=== PATIENT | female | born 1955 | race Caucasian/White ===

== ENCOUNTER 2016-09-01 17:04 | Observation (INO) | payer MEDICARE ==
[~2016-09-01] VITALS: Ht 167.6 cm; Wt 152.1 kg
[~2016-09-01 17:04] MED LIST: ADVAIR DISKU1 IN; ALBUTEROL2.5 MG/3 M IN; CALCITRIOL0.25 MCG PO; CENTRUM SILVE1 PO; COMBIVENT RESPIMAT; COQ-10100 MG PO; FISH OIL1200 MG PO; FLUOXETINE HCL20 MG PO; LISINOPRIL10 MG PO; LOPRESSOR25 MG PO; METOPROLOL SUCC50 MG PO; MYCOSTATIN15 GM TOP; NYSTATIN100000 MG PO; OMEPRAZOLE20 M1 PO; PREDNISONE20 MG PO; RISPERDAL1 MG PO; SPIRIVA18 MCG INH; SYMBICORT1 AE1; TYLENOL325 MG PO
--- NOTE | 2016-09-01 19:07 | DIAGNOSTIC IMAGING REPORT ---
PROCEDURE: US VENOUS - BILATERAL EXT INDICATION: SWELLING TECHNIQUE: Duplex sonography of the deep venous system in both lower extremities was performed. Compression and augmentation techniques were used. COMPARISON: None. FINDINGS: Each interrogated segment of deep vein from the common femoral vein into the calf veins demonstrates normal compressibility, augmentation and/or color Doppler flow without filling defect. Significant subcutaneous edema in both calves. No focal fluid collections or soft tissue mass. IMPRESSION: 1. No deep venous thrombosis in either lower extremity. 2. Bilateral calf edema.
--- NOTE | 2016-09-01 19:09 | ED CLINICAL REPORT ---
Clinical Report - Physicians/Mid Levels [facility] [address] [place] [address] 09/01/2016 17:05 Patient: GREGG KEARNEY Time Seen: 17:47. Arrived- By private vehicle. Historian- patient. Note: (sent in from clinic (YOANA Abraham)). HISTORY OF PRESENT ILLNESS Chief Complaint: TENDER AREA. This started about 2 weeks ago and is still present. It was gradual in onset and has been waxing/waning. It is described as painful. It has been located on the right lower extremity and left lower extremity. No cause has been identified. (Pt reports she was diagnosed with cellulitis 2 weeks ago and has been on antibiotics, but is getting worse). Similar symptoms previously: Recent medical care: The patient was seen recently in a clinic. REVIEW OF SYSTEMS No fever, cough, difficulty breathing, headache or chest pain. No abdominal pain, diarrhea, difficulty with urination, genital lesions or vomiting. She has had nausea. All systems otherwise negative, except as recorded above. PAST HISTORY See nurses notes. PCP: Vickey PROBLEMS: Leukocytosis. Iv Drug Use. Osteoporosis. Arthritis. Hypertension. Hepatitis C. COPD - Chronic Obstructive Pulmonary Disease. Anxiety. Depression. SURGERIES: Appendectomy. Hysterectomy. Medications: Dicloxacillin Sodium Oral. Omeprazole Oral. RisperiDONE Oral. Spiriva HandiHaler Inhalation. Symbicort Inhalation. Furosemide Oral. Calcium Citrate Oral. Centrum Silver Oral. FLUoxetine HCl Oral. Lisinopril Oral. Metoprolol Succinate ER Oral. Allergies: Thorazine. Definite(Anaphylaxis). SOCIAL HISTORY Former smoker. History of drug use: marijuana. No alcohol use. ADDITIONAL NOTES The nursing notes have been reviewed. PHYSICAL EXAM Vital Signs: 09/01/2016 17:42 BP: 151/89. HR: 87. RR: 24. O2 saturation: 93%. Temp: 98.2 F. Pain level now: 8/10. Appearance: Alert. Oriented X3. Patient in moderate distress. ENT: Pharynx normal. Neck: Neck supple. CVS: Normal heart rate and rhythm. Heart sounds normal. Respiratory: No respiratory distress. Breath sounds normal. Abdomen: Nontender. No organomegaly. Obese. Skin: Cellulitis to right leg and left leg. Extremities: Moderate right-sided and left-sided calf tenderness. Bilateral severe pitting edema of the lower extremities. Right leg: moderate erythema, tenderness and swelling located in the anterior, posterior, medial and lateral aspect of upper, mid and lower leg. Neurovascular intact distally. Left leg: moderate erythema, tenderness and swelling. Neuro: Oriented X 3. No motor deficit. No sensory deficit. LABS, X-RAYS, AND EKG Lower Extremity Sonography: No evidence of DVT bilaterally. Indication for study: extremity pain, swelling and redness; suspected deep venous thrombosis in the right and left lower extremity. The exam was performed by a tool maintenance technician. The study was interpreted by the radiologist. Laboratory Tests: CBC w Diff: (PAUL: 09/01/2016 18:10) ( MsgRcvd 09/01/2016 18:27) Final results Test Result Flag Units (Reference) WHITE BLOOD COUNT 10.0 K/uL (4.5-11.5) RED BLOOD COUNT 3.77 L M/uL (4.00-5.20) HEMOGLOBIN 11.9 L gm/dL (12.0-16.0) HEMATOCRIT 35.5 L % (36.0-46.0) MEAN CELL VOLUME 94 fL (80-100) MEAN CORPUSCULAR HGB 32 pg (26-34) MEAN CORPUSCULAR HGB CONC 34 g/dL (31-37) RED CELL DISTRIBUTION WIDTH 14.7 % (11.6-14.8) PLATELET COUNT 323 K/uL (150-400) NEUTROPHIL % 78.8 H % (50-75) LYMPH % 9.2 L % (25-40) MONO % 7.4 % (3-14) EOSINOPHIL % 1.6 % (0-4) BASOPHIL % 3.0 H % (0-2) BNP: (PAUL: 09/01/2016 18:10) ( MsgRcvd 09/01/2016 18:52) Final results Test Result Flag Units (Reference) B-TYPE NATRIURETIC PEPTIDE 16.1 pg/ml (5-100) Lactate, Serum: (PAUL: 09/01/2016 18:10) ( MsgRcvd 09/01/2016 18:58) Final results Test Result Flag Units (Reference) LACTIC ACID 1.6 mmol/L (0.4-2.0) [id number]: (PAUL: 09/01/2016 18:10) ( MsgRcvd 09/01/2016 18:58) Final results Test Result Flag Units (Reference) PROCALCITONIN <0.5 ng/mL (0-0.5) PCT Concentration: Interpretation : Risk/option for action PCT <=0.5 ng/mL : Systemic : Low risk forinfection(sepsis): progression to severeis not likely. : systemic infection.Local bacterial : CAUTION-PCT levelsinfection is : below 0.5 ng/mL do notpossible. : exclude an infection,because localizedinfections (withoutsystemic signs) may beassociated with suchlow levels. If PCT ismeasured very earlyafter a bacterialchallenge (usually <6hours), these valuesmay still be low. Inthis case PCT shouldbe re-assessed 6-24hours later. PCT >0.5 and : Systemic infection: Moderate risk for<= 2 ng/mL : (sepsis) is : progression to severepossible, but : systemic infection.other conditions : The patient should beare known to : closely monitoredelevate PCT. : both clinically andby re-assessing PCTwithin 6-24 hours. PCT > 2 ng/mL : Systemic infection: High risk for(sepsis) is likely: progression to severeunless other : systemic infection.causes are known. : PCT >= 10 ng/mL : Important systemic: High likelihood ofinflammatory : severe sepsis orresponse, almost : septic shock.exclusively due to:severe bacterial :sepsis or septic :shock. : CMP: (PAUL: 09/01/2016 18:10) ( MsgRcvd 09/01/2016 18:38) Final results Test Result Flag Units (Reference) GLUCOSE 123 H mg/dL (70-110) BUN 15 mg/dL (7-18) CREATININE 1.4 H mg/dL (0.6-1.3) Estimated GFR 40.37 mL/min Estimated GFR- 48.92 mL/min Note: Persistent reduction over 3 months in eGFR<60 mL/min/1.73 m2 defines CKD. Patients with eGFR values>=60 mL/min/1.73 m2 may also have CKD if evidence ofpersistent proteinuria. Additional information may be foundat www.kidney.org. SODIUM 139 mmol/L (136-145) POTASSIUM 4.4 mmol/L (3.5-5.1) CHLORIDE 100 mmol/L (98-107) CARBON DIOXIDE 28 mmol/L (21-32) CALCIUM 8.8 mg/dL (8.5-10.1) TOTAL PROTEIN 6.6 g/dL (6.4-8.2) ALBUMIN 3.6 g/dL (3.3-5.0) BILIRUBIN, TOTAL 0.2 mg/dL (0.0-1.0) ALKALINE PHOSPHATASE 96 U/L (46-116) AST (SGOT) 13 L U/L (15-37) ALT (SGPT) 20 U/L (12-78) . Pulse Oximetry: 09/01/2016 17:42 O2 saturation: 93%. (FIO2 - room air). Interpretation: hypoxemia. PROGRESS AND PROCEDURES Course of Care: Normal Saline 1 liter IVPB given. Vancomycin 1 gram IVPB given. Zofran 4 mg IVP given. Dilaudid 0.5 mg IVP given. 19:39 09/01/16. Patient is stable. Physical exam findings are improved. Symptoms better. Discussed case with hospitalist, (Lyle call placed 19:17 call returned 19:32). Reviewed test results. Agreed upon treatment plan and decision to admit. Patient/family counseled. Old ED records reviewed. Transition orders written. Disposition: Admitted to Acute Care. Condition: stable and improved. CLINICAL IMPRESSION Cellulitis of the right lower leg and left lower leg. (Electronically signed by Sam Leroy DO 09/01/2016 22:16)
--- NOTE | 2016-09-01 19:09 | ED ORDER SUMMARY ---
..... Patient: GREGG KEARNEY OrderSheet VisitID: [id number] [address] [place] [address] 61y, F Registration Date/Time: 09/01/2016 ORDER SHEET Weight: 147.4 kg (stated) Allergies: Thorazine GENERAL ORDERS: CBC w Diff Urgent (17:48 09/01/2016 PHutchinson DO) (18:11 MWinterer R.N.) CMP Urgent (17:48 09/01/2016 PHutchinson DO) (18:11 MWinterer R.N.) UA-Culture if indicated Urgent (17:48 09/01/2016 PHutchinson DO) (Ack 18:20 RKkaterina) (Cancelled: Unable to Fwkzojs47:39 MWinterer R.N.) PCT (Procalcitonin) Urgent (17:48 09/01/2016 PHutchinson DO) (18:11 MWinterer R.N.) Lactate, Serum Urgent (17:48 09/01/2016 PHutchinson DO) (18:11 MWinterer R.N.) US Venous Bilat Urgent (18:01 09/01/2016 PHutchinson DO) (Ack 18:11 MWinterer R.N.) (18:45 MWinterer R.N.) BNP Urgent (18:02 09/01/2016 PHutchinson DO) (18:11 MWinterer R.N.) Call (Place call to): (Dr Alvarenga) (19:17 09/01/2016 PHutchinson DO) (19:32 [facility] Tech1) MEDICATION ORDERS: IV FLUIDS: IV NS : initial bolus 1000 mL (1000 mL/hr), then 250 mL/hr for X4 (NOW) (17:48 09/01/2016 PHutchinson DO) (Ack 17:50 MWinterer R.N.) (18:11 MWinterer R.N.) Vancomycin IV 2 gm/500 mL (NOW) (17:51 09/01/2016 PHutchinson DO) (Ack 18:11 MWinterer R.N.) (18:47 MWinterer R.N.) Dilaudid IV 0.5 mg (HIGH ALERT MEDICATION, NOW) (18:41 09/01/2016 [facility]) (Ack 18:45 MWinterer R.N.) (18:54 MWinterer R.N.) Zofran IV 4 mg (NOW) (18:41 09/01/2016 [facility]) (Ack 18:45 MWinterer R.N.) (18:54 MWinterer R.N.) ORDER SHEET NOTES: [Electronically signed by Sam Leroy DO (22:16 09/01/2016)] [Electronically signed by Shanthi Ibarra R.N. (23:40 09/01/2016)] [Electronically locked/signed by Shanthi Ibarra R.N. (23:40 09/01/2016)]
--- NOTE | 2016-09-01 19:09 | ED NURSING NOTES ---
Clinical Report - Nurses [facility] [place] [address] [address] 09/01/2016 17:05 Patient: GREGG KEARNEY TRIAGE Acuity: LEVEL 3. Chief Complaint: SKIN RASH. Alert. No acute distress. SEPSIS SCREEN: Sepsis Screen. Negative (no infection suspected/documented). --17:49 Shanthi Ibarra R.N. 17:42 09/01/16. BP: 151/89. HR: 87. RR: 24. O2 saturation: 93% on room air. Temp: 98.2 F (oral). Pain level now: 01/25. --17:49 Shanthi Ibarra R.N. Weight: 147.4 kg stated. Height/Length: 66 inches Per Patient. BMI: 52.5. --17:46 Shanthi Ibarra R.N. Medications Calcium Citrate Oral. Centrum Silver Oral. FLUoxetine HCl Oral. Lisinopril Oral. Metoprolol Succinate ER Oral. --17:47 Shanthi Ibarra R.N. Furosemide Oral. --17:47 Shanthi Ibarra R.N. Omeprazole Oral. RisperiDONE Oral. Spiriva HandiHaler Inhalation. Symbicort Inhalation. --17:47 Shanthi Ibarra R.N. Dicloxacillin Sodium Oral. --17:48 Shanthi Ibarra R.N. Allergies Thorazine. Definite(Anaphylaxis) --17:48 Shanthi Ibarra R.N. History Arrived by private vehicle. Historian: patient. Accompanied by daughter and son. Primary physician (Zaida). Reported as located on the right leg, right ankle, left leg and left ankle. Onset. (2 weeks ago). ( Pt reports she was diagnosed with cellulitis 2 weeks ago and has been on antibiotics, but is getting worse.). Treatment ENRICHMENT DIRECTOR: Seen within the last 30 days in the office; seen for similar symptoms; treatment- antibiotic. PAST MEDICAL HX: The patient has had a hysterectomy. SOCIAL HX: Smoker- current status unknown. History of occasional drug use: marijuana. No alcohol use. NUTRITIONAL RISK ASSESSMENT: The nutritional risk assessment revealed no deficiencies. FUNCTIONAL ASSESSMENT: Functional assessment: no impairments noted. LEARNING NEEDS ASSESSMENT: The learning needs assessment revealed no barriers. FALL RISK ASSESSMENT: Fall risk assessment completed. Risk factors identified include severe pain and patient impairment of mobility. SKIN INTEGRITY ASSESSMENT: Skin integrity risk assessment completed. No skin integrity risk identified. --17:49 Shanthi Ibarra R.N. PROBLEMS: Leukocytosis. Iv Drug Use. Osteoporosis. Arthritis. Hypertension. Hepatitis C. COPD - Chronic Obstructive Pulmonary Disease. Anxiety. Depression. --17:48 Shanthi Ibarra R.N. ADDITIONAL SURGERIES: Appendectomy. Hysterectomy. --17:48 Shanthi Ibarra R.N. Assessment GENERAL / NEURO / PSYCH: Alert. Oriented X 4. Appears in no acute distress. Alejandro Coma Scale: 15- eyes open spontaneously (4); best verbal response- oriented x 4 (5); best motor response- obeys commands (6). Patient appears calm and cooperative. RESPIRATORY: Respirations not labored. CVS: Capillary refill less than 2 seconds. GI / : Abdomen soft. SKIN: Mucous membranes are pink. Skin is warm and dry. --17:49 Shanthi Ibarra R.N. Interventions ID band on patient. To treatment room. --17:49 Shanthi Ibarra R.N. PHYSICAL ASSESSMENT 17:50 09/01/16. Ambulatory to room. GENERAL / NEURO / PSYCH: Alert. The patient does not appear to be in acute distress. Oriented X 4. HEENT: Pupils equal, round and reactive to light. Mucous membranes are pink. RESPIRATORY: Respirations not labored. CVS: Capillary refill less than 2 seconds. GI / : Abdomen nontender. SKIN: Skin is warm and dry. Swelling on the right leg, right ankle, left leg and left ankle- associated with erythema, tenderness and increased warmth. --17:50 Shanthi Ibarra R.N. NURSING PROGRESS NOTES 17:50 09/01/16. Patient gowned. Reassurance given. Two patient identifiers checked. Call light placed in reach. Side rails up x 1. Bed placed in lowest position. Brakes of bed on. Patient ready for evaluation- chart flagged and ED physician and SHIP RUNNER notified. --17:50 Shanthi Ibarra R.N. 18:10 09/01/2016 Site #1 started via IV in the right wrist with an 22g angiocath, with aseptic technique and good blood return. Blood drawn: rainbow set. Labeled in the presence of the patient and sent to the lab. --18:10 Shanthi Ibarra R.N. 18:11 09/01/2016 Started bag #1 1000 mL IV Fluids IV NS (Saline); at 999 mL/hr over 1 hour(s) via site #1 via IV pump. Allergies verified and confirmed 5 rights. IV patency established. IV site checked: no pain, redness, or swelling. IV flushed thoroughly pre- and post-medication administration. --18:11 Shanthi Ibarra R.N. 18:17 09/01/16. wellfield technician at the patient's bedside. --18:17 Shanthi Ibarra R.N. 18:47 09/01/2016 Started 2 gm of Vancomycin IVPB in bag #1 500 mL; at 270 mL/hr over 2 hour(s) via site #1 via IV pump. Allergies verified and confirmed 5 rights. IV patency established. IV site checked: no pain, redness, or swelling. IV flushed thoroughly pre- and post-medication administration. --18:47 Shanthi Ibarra R.N. 18:54 09/01/2016 Dilaudid (HYDROmorphone HCl PF) IVP 0.5 mg given over 1 minute(s) via site #1. Sedative warning given to the patient. IV patency established. IV site checked: no pain, redness, or swelling. IV flushed thoroughly pre- and post-medication administration. IVP given by RN. --18:54 Shanthi Ibarra R.N. 18:54 09/01/2016 Zofran (Ondansetron HCl) IVP 4 mg given over 1 minute(s) via site #1. Allergies verified and confirmed 5 rights. IV patency established. IV site checked: no pain, redness, or swelling. IV flushed thoroughly pre- and post-medication administration. IVP given by RN. --18:54 Shanthi Ibarra R.N. 18:55 09/01/16. BP: 133/72. HR: 80. RR: 16. O2 saturation: 93% on nasal cannula at 2 liters/minute. --18:55 Shanthi Ibarra R.N. 20:13 09/01/16. BP: 136/75. HR: 80. RR: 16. O2 saturation: 94% on nasal cannula at 2 liters/minute. Temp: 98.6 F (oral). Pain level now: 10/25. --20:15 Shanthi Ibarra R.N. 20:59 09/01/2016 IV Fluids IV NS Discontinued: bag #1 infused. Total amount infused: 1000 mL. IV patency established. IV site checked: no pain, redness, or swelling. IV flushed thoroughly. --20:59 Shanthi Ibarra R.N. 20:59 09/01/2016 Vancomycin IVPB Discontinued: bag #1 infused. Total amount infused: 500 mL. IV patency established. IV site checked: no pain, redness, or swelling. IV flushed thoroughly. --20:59 Shanthi Ibarra R.N. DISPOSITION / DISCHARGE Departure time: 21:00 Sep 01 2016. Condition at departure: improved and stable. Admitted to Acute Care. Transported via stretcher by [employer]. Report was given. (ROSETTA Bush). Patient's personal items include: shirt, pants, undergarments, socks, shoes, glasses, upper denture and lower denture, purse and cell phone; items were placed in belongings bag and given to the patient. She did not have contacts or a hearing aid. --21:01 Shanthi Ibarra R.N. 20:59 09/01/16. BP: 116/53. HR: 88. RR: 20. O2 saturation: 93% on nasal cannula at 2 liters/minute. Temp: 98.4 F (oral). Pain level now: 10/25. --21:01 Shanthi Ibarra R.N. 21:02 09/01/2016 Site #[address] upon admission; patent, no pain and no signs of infection or infiltration. Converted to saline lock and flushed with 10 mL saline; flushes easily. --21:02 Shanthi Ibarra R.N. Locked/Released at 09/01/2016 23:40 by Shanthi Ibarra R.N.
--- NOTE | 2016-09-01 19:09 | ED ORDER SUMMARY ---
..... Patient: GREGG KEARNEY OrderSheet [facility] VisitID: [id number] [address] [place] [address] 61y, F Registration Date/Time: 09/01/2016 ORDER SHEET Weight: 147.4 kg (stated) Allergies: Thorazine GENERAL ORDERS: CBC w Diff Urgent (17:48 09/01/2016 PHutchinson DO) (18:11 MWinterer R.N.) CMP Urgent (17:48 09/01/2016 PHutchinson DO) (18:11 MWinterer R.N.) UA-Culture if indicated Urgent (17:48 09/01/2016 PHutchinson DO) (Ack 18:20 RKkaterina) (Cancelled: Unable to [id number]:39 MWinterer R.N.) PCT (Procalcitonin) Urgent (17:48 09/01/2016 PHutchinson DO) (18:11 MWinterer R.N.) Lactate, Serum Urgent (17:48 09/01/2016 PHutchinson DO) (18:11 MWinterer R.N.) US Venous Bilat Urgent (18:01 09/01/2016 PHutchinson DO) (Ack 18:11 MWinterer R.N.) (18:45 MWinterer R.N.) BNP Urgent (18:02 09/01/2016 PHutchinson DO) (18:11 MWinterer R.N.) Call (Place call to): (Dr Alvarenga) (19:17 09/01/2016 PHutchinson DO) (19:32 [facility] Tech1) MEDICATION ORDERS: IV FLUIDS: IV NS : initial bolus 1000 mL (1000 mL/hr), then 250 mL/hr for X4 (NOW) (17:48 09/01/2016 PHutchinson DO) (Ack 17:50 MWinterer R.N.) (18:11 MWinterer R.N.) Vancomycin IV 2 gm/500 mL (NOW) (17:51 09/01/2016 PHutchinson DO) (Ack 18:11 MWinterer R.N.) (18:47 MWinterer R.N.) Dilaudid IV 0.5 mg (HIGH ALERT MEDICATION, NOW) (18:41 09/01/2016 [facility]) (Ack 18:45 MWinterer R.N.) (18:54 MWinterer R.N.) Zofran IV 4 mg (NOW) (18:41 09/01/2016 [facility]) (Ack 18:45 MWinterer R.N.) (18:54 MWinterer R.N.) ORDER SHEET NOTES: [Electronically signed by Sam Leroy DO (22:16 09/01/2016)] [Electronically signed by hSanthi Ibarra R.N. (23:40 09/01/2016)] [Electronically locked/signed by Shanthi Ibarra R.N. (23:40 09/01/2016)]
--- NOTE | 2016-09-01 19:09 | ED NURSING NOTES ---
Clinical Report - Nurses Formerly [facility] [place] [address] 09/01/2016 17:05 Patient: GREGG KEARNEY TRIAGE Acuity: LEVEL 3. Chief Complaint: SKIN RASH. Alert. No acute distress. SEPSIS SCREEN: Sepsis Screen. Negative (no infection suspected/documented). --17:49 Shanthi Ibarra R.N. 17:42 09/01/16. BP: 151/89. HR: 87. RR: 24. O2 saturation: 93% on room air. Temp: 98.2 F (oral). Pain level now: 01/25. --17:49 Shanthi Ibarra R.N. Weight: 147.4 kg stated. Height/Length: 66 inches Per Patient. BMI: 52.5. --17:46 Shanthi Ibarra R.N. Medications Calcium Citrate Oral. Centrum Silver Oral. FLUoxetine HCl Oral. Lisinopril Oral. Metoprolol Succinate ER Oral. --17:47 Shanthi Ibarra R.N. Furosemide Oral. --17:47 Shanthi Ibarra R.N. Omeprazole Oral. RisperiDONE Oral. Spiriva HandiHaler Inhalation. Symbicort Inhalation. --17:47 Shanthi Ibarra R.N. Dicloxacillin Sodium Oral. --17:48 Shanthi Ibarra R.N. Allergies Thorazine. Definite(Anaphylaxis) --17:48 Shanthi Ibarra R.N. History Arrived by private vehicle. Historian: patient. Accompanied by daughter and son. Primary physician (Zaida). Reported as located on the right leg, right ankle, left leg and left ankle. Onset. (2 weeks ago). ( Pt reports she was diagnosed with cellulitis 2 weeks ago and has been on antibiotics, but is getting worse.). 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 PAST MEDICAL HX: The patient has had a hysterectomy. SOCIAL HX: Smoker- current status unknown. History of occasional drug use: marijuana. No alcohol use. NUTRITIONAL RISK ASSESSMENT: The nutritional risk assessment revealed no deficiencies. FUNCTIONAL ASSESSMENT: Functional assessment: no impairments noted. LEARNING NEEDS ASSESSMENT: The learning needs assessment revealed no barriers. FALL RISK ASSESSMENT: Fall risk assessment completed. Risk factors identified include severe pain and patient impairment of mobility. SKIN INTEGRITY ASSESSMENT: Skin integrity risk assessment completed. No skin integrity risk identified. --17:49 Shanthi Ibarra R.N. PROBLEMS: Leukocytosis. Iv Drug Use. Osteoporosis. Arthritis. Hypertension. Hepatitis C. COPD - Chronic Obstructive Pulmonary Disease. Anxiety. Depression. --17:48 Shanthi Ibarra R.N. ADDITIONAL SURGERIES: Appendectomy. Hysterectomy. --17:48 Shanthi Ibarra R.N. Assessment GENERAL / NEURO / PSYCH: Alert. Oriented X 4. Appears in no acute distress. Alejandro Coma Scale: 15- eyes open spontaneously (4); best verbal response- oriented x 4 (5); best motor response- obeys commands (6). Patient appears calm and cooperative. RESPIRATORY: Respirations not labored. CVS: Capillary refill less than 2 seconds. GI / : Abdomen soft. SKIN: Mucous membranes are pink. Skin is warm and dry. --17:49 Shanthi Ibarra R.N. Interventions ID band on patient. To treatment room. --17:49 Shanthi Ibarra R.N. PHYSICAL ASSESSMENT 17:50 09/01/16. Ambulatory to room. GENERAL / NEURO / PSYCH: Alert. The patient does not appear to be in acute distress. Oriented X 4. HEENT: Pupils equal, round and reactive to light. Mucous membranes are pink. RESPIRATORY: Respirations not labored. CVS: Capillary refill less than 2 seconds. GI / : Abdomen nontender. SKIN: Skin is warm and dry. Swelling on the right leg, right ankle, left leg and left ankle- associated with erythema, tenderness and increased warmth. --17:50 Shanthi Ibarra R.N. NURSING PROGRESS NOTES 17:50 09/01/16. Patient gowned. Reassurance given. Two patient identifiers checked. Call light placed in reach. Side rails up x 1. Bed placed in lowest position. Brakes of bed on. Patient ready for evaluation- chart flagged and ED physician and AUDIT MGR notified. --17:50 Shanthi Ibarra R.N. 18:10 09/01/2016 Site #1 started via IV in the right wrist with an 22g angiocath, with aseptic technique and good blood return. Blood drawn: rainbow set. Labeled in the presence of the patient and sent to the lab. --18:10 Shanthi Ibarra R.N. 18:11 09/01/2016 Started bag #1 1000 mL IV Fluids IV NS (Saline); at 999 mL/hr over 1 hour(s) via site #1 via IV pump. Allergies verified and confirmed 5 rights. IV patency established. IV site checked: no pain, redness, or swelling. IV flushed thoroughly pre- and post-medication administration. --18:11 Shanthi Ibarra R.N. 18:17 09/01/16. field evidence technician at the patient's bedside. --18:17 Shanthi Ibarra R.N. 18:47 09/01/2016 Started 2 gm of Vancomycin IVPB in bag #1 500 mL; at 270 mL/hr over 2 hour(s) via site #1 via IV pump. Allergies verified and confirmed 5 rights. IV patency established. IV site checked: no pain, redness, or swelling. IV flushed thoroughly pre- and post-medication administration. --18:47 Shanthi Ibarra R.N. 18:54 09/01/2016 Dilaudid (HYDROmorphone HCl PF) IVP 0.5 mg given over 1 minute(s) via site #1. Sedative warning given to the patient. IV patency established. IV site checked: no pain, redness, or swelling. IV flushed thoroughly pre- and post-medication administration. IVP given by RN. --18:54 Shanthi Ibarra R.N. 18:54 09/01/2016 Zofran (Ondansetron HCl) IVP 4 mg given over 1 minute(s) via site #1. Allergies verified and confirmed 5 rights. IV patency established. IV site checked: no pain, redness, or swelling. IV flushed thoroughly pre- and post-medication administration. IVP given by RN. --18:54 Shanthi Ibarra R.N. 18:55 09/01/16. BP: 133/72. HR: 80. RR: 16. O2 saturation: 93% on nasal cannula at 2 liters/minute. --18:55 Shanthi Ibarra R.N. 20:13 09/01/16. BP: 136/75. HR: 80. RR: 16. O2 saturation: 94% on nasal cannula at 2 liters/minute. Temp: 98.6 F (oral). Pain level now: 10/25. --20:15 Shanthi Ibarra R.N. 20:59 09/01/2016 IV Fluids IV NS Discontinued: bag #1 infused. Total amount infused: 1000 mL. IV patency established. IV site checked: no pain, redness, or swelling. IV flushed thoroughly. --20:59 Shanthi Ibarra R.N. 20:59 09/01/2016 Vancomycin IVPB Discontinued: bag #1 infused. Total amount infused: 500 mL. IV patency established. IV site checked: no pain, redness, or swelling. IV flushed thoroughly. --20:59 Shanthi Ibarra R.N. DISPOSITION / DISCHARGE Departure time: 21:00 Sep 01 2016. Condition at departure: improved and stable. Admitted to Acute Care. Transported via stretcher by [facility]. Report was given. (ROSETTA Bush). Patient's personal items include: shirt, pants, undergarments, socks, shoes, glasses, upper denture and lower denture, purse and cell phone; items were placed in belongings bag and given to the patient. She did not have contacts or a hearing aid. --21:01 Shanthi Ibarra R.N. 20:59 09/01/16. BP: 116/53. HR: 88. RR: 20. O2 saturation: 93% on nasal cannula at 2 liters/minute. Temp: 98.4 F (oral). Pain level now: 10/25. --21:01 Shanthi Ibarra R.N. 21:02 09/01/2016 Site #[address] upon admission; patent, no pain and no signs of infection or infiltration. Converted to saline lock and flushed with 10 mL saline; flushes easily. --21:02 Shanthi Ibarra R.N. Locked/Released at 09/01/2016 23:40 by Shanthi Ibarra R.N.
[2016-09-01 20:12] VITALS: BP 133/72
--- NOTE | 2016-09-01 20:34 | Progress Note ---
Subjective General Admission History and Physical Examination Patient Name: Massiel Larson Admission Date: September 01, 2016 Primary Care Provider: Rey Hurd M.D. Attending Physician: Te Alvarenga M.D. Admitting Physician: Te Alvarenga M.D. Code Status: Full Code Room: 208 SUBJECTIVE Historian: Patient Reliability: Fair Chief Complaint: Infected legs History of Present Illness: The patient is a 61-year-old morbidly obese white female with a significant past medical history of venous stasis dermatitis lower extremities, COPD, hypertension, osteoarthritis, depression, bipolar disorder, hepatitis C, who presented to [facility] emergency department on the day of admission secondary to complaints of bilateral lower extremity cellulitis unresponsive to outpatient oral antibiotic therapy. [facility] ER evaluation was consistent with bilateral lower leg cellulitis unresponsive to outpatient therapy. Secondary to the above, the patient was admitted by Te Alvarenga M.D. for further evaluation and treatment. 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 Patient was seen by PCP and received 2 courses of outpatient ATB's totaling 20 days of treatment. Patient noted no change in LE swelling, redness, pain. Secondary to the above, the patient presented to [facility] ER. ER evaluation suggestive of cellulitis bilat LE versus venous stasis dermatitis. Pt admitted for further evaluation and treatment. PAST MEDICAL HISTORY Illnesses: 1. Hypertension 2. COPD 3. Osteoarthritis 4. Osteoporosis 5. Depression 6. Bipolar disorder 7. History of hepatitis C status post treatment-JANKI 8. Morbid obesity Allergies: 1. Thorazine Medications: 1. Albuterol neb 2.5 mg every 6 hours when necessary shortness of breath 2. Symbicort 1 inhalation twice a day 3. Calcitriol 0.25 g 1 by mouth daily 4. Fluoxetine 20 mg by mouth daily 5. Lisinopril 40 mg by mouth daily 6. Centrum Silver 1 by mouth daily 7. Prilosec 20 mg by mouth daily 8. Risperdal 2 mg by mouth daily at bedtime 9. Spiriva one inhalation daily 10. Dicloxacillin dosage unknown Surgery: 1. Hysterectomy 2. Removal of benign ovarian tumor 3. Appendectomy 4. Colonoscopy 2010 Injuries: 1. No significant Hospitalizations: 1. For above surgery and medical problems FAMILY HISTORY Parents: 1. Father, living, 96, healthy, 2. Mother, living, 94, healthy Siblings: 1. Male, Blaine, living, 65, healthy 2. Male, Elroy, living, 61, healthy Children: 1. Male, Te, living, disability secondary to motor vehicle accident 2. Male, Cirilo, living, healthy Other significant family history: None SOCIAL HISTORY 1. Marital Status: 2. Restorationist: None 3. Education: 10th grade 4. 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 Occupational health exposures: None 6. Residence: Patient currently lives with her son HABITS 1. Tobacco: Former smoker stopped smoking 2007, 130 pack years pack years 2. Drugs: Marijuana 3. Alcohol: Rare usage 4. Caffeine: 3 cups coffee per day HEALTH SUPERVISION Item/Test 1. Vision screen: Unknown 2. Cholesterol Profile: Unknown 3. PSA: Not applicable 4. EMILIE: Not applicable 5. FOBT: Unknown 6. Blood Glucose: 2016 7. Colonoscopy: 2003 8. History and physical exam: Unknown 9. Audiogram: Unknown 10. Mammogram: 2015 04. Pap/pelvic exam: No recent, status post hysterectomy IMMUNIZATIONS: 1. Pneumococcal: 2015 2. Influenza: 2016 3. Tetanus: Unknown 4. Shingles vaccine: 2015 ADVANCED DIRECTIVES: 1. Living well: No 2. POLST: No 3. CODE STATUS: FULL CODE 4. 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 Donor card: No REVIEW OF SYSTEMS Remarkable for those things stated in the history of present illness and past medical history. Seventeen point review of system completed with the following notable findings: General: Weight gain, pain, weakness, fatigue Skin: Rash, dryness Ears: Drainage Lungs: Shortness of breath, cough, wheezing, COPD Cardiovascular: Ankle edema, pain with ambulation, shortness of breath with exertion, shortness of breath when lying flat, chest tightness Musculoskeletal: Joint stiffness, joint pain, backache Neurological: Tremors, headaches Psychological: Difficulty sleeping, anxiety Physical Exam Vital Signs / I&Os Vital Signs Date Time Temp Pulse Resp B/P Pulse O2 O2 Flow FiO2 Ox Delivery Rate 09/02 2011 98.2 80 16 133/72 93 2.0 General Appearance Alert, Oriented X3, Cooperative, No acute distress HEENT Atraumatic, PERRLA, EOMI, Moist mucous membranes Lungs Minimal expiratory wheezes bilaterally. Decreased air movement bilaterally Neck Supple, No JVD Cardiovascular Regular rate and rhythm, Normal S1 and S2, No murmurs, gallops, rubs Abdomen Normal bowel sounds, Soft, No tenderness Extremities No cyanosis, No clubbing, 3+ edema, diffuse erythema from ankle to above the knees bilaterally. No clear induration. Tender to palpation. Skin See above Neurological Cranial nerves intact, Strength 5/5 x4 ext's, No lateralizing signs Psych/Mental Status Mental status normal, Mood normal LAB Results Laboratory Tests 09/01 181 181 181 Chemistry Plasma Sodium (136 - 145 mmol/L) 139 Plasma Potassium (3.5 - 5.1 mmol/L) 4.4 Plasma Chloride (98 - 107 mmol/L) 100 CO2 (Enzymatic) (21 - 32 mmol/L) 28 BUN (7 - 18 mg/dL) 15 Creatinine (0.6 - 1.3 mg/dL) 1.4 Est GFR ( Amer) (mL/min) 48.92 Est GFR (Non-Af Amer) (mL/min) 40.37 Glucose (70 - 110 mg/dL) 123 Lactic Acid (0.4 - 2.0 mmol/L) 1.6 Plasma Calcium (8.5 - 10.1 mg/dL) 8.8 Total Bilirubin (0.0 - 1.0 mg/dL) 0.2 AST (15 - 37 U/L) 13 ALT (12 - 78 U/L) 20 Alkaline Phosphatase (46 - 116 U/L) 96 B-Natriuretic Peptide (5 - 100 pg/ml) 16.1 Total Protein (6.4 - 8.2 g/dL) 6.6 Albumin (3.3 - 5.0 g/dL) 3.6 Procalcitonin (0 - 0.5 ng/mL) <0.5 Hematology WBC (4.5 - 11.5 K/uL) 10.0 RBC (4.00 - 5.20 M/uL) 3.77 Hgb (12.0 - 16.0 gm/dL) 11.9 Hct (36.0 - 46.0 %) 35.5 MCV (80 - 100 fL) 94 MCH (26 - 34 pg) 32 RDW (11.6 - 14.8 %) 14.7 Neut % (Auto) (50 - 75 %) 78.8 Lymph % (Auto) (25 - 40 %) 9.2 [place] % (Auto) (3 - 14 %) 7.4 Eos % (Auto) (0 - 4 %) 1.6 Baso % (Auto) (0 - 2 %) 3.0 Plt Count, EDTA (150 - 400 K/uL) 323 PUBS MCHC (31 - 37 g/dL) 34 Imaging Venous Doppler and Ultrasound-Bilateral Lower Extremities IMPRESSION: 1. No deep venous thrombosis in either lower extremity. 2. Bilateral calf edema. Dictated by: TRACE BULL MD D: JASON;09/01/16 7568 Assessment and Plan Problem List 1. Bilateral cellulitis of lower leg Plan -Patient presents with swollen, erythematous legs. -Unresponsive to outpatient antimicrobial therapy 20 days. -Persistent edema and erythema with associated tenderness to palpation. -Patient denies history of fever and chills over the past 3 weeks. -High likelihood this represents venous stasis dermatitis but cannot exclude cellulitis -Vancomycin per pharmacy protocol -Leg elevation, diuretic therapy, venous compression wraps, topical corticosteroids in the form of triamcinolone -Monitor 2. HTN (hypertension) Plan -Patient with long-standing history of hypertension. -Continue lisinopril, Lopressor, Lasix -Monitor -Low-salt diet 3. CKD (chronic kidney disease) stage 3, GFR 30-59 ml/min Status Acute Onset Date Unknown Plan -Patient with findings of mild elevation of creatinine at 1.4. -Monitor 4. Hyperglycemia Status Acute Onset Date Unknown Plan -Patient with findings of hyperglycemia -Check hemoglobin A1c -Monitor before meals and at bedtime blood sugar -Consider insulin sliding scale for persistent elevation of blood glucose. 5. Obesity Status Chronic Onset Date Unknown Plan -Patient with findings of morbid obesity -We'll encourage weight reduction program -Dietary consultation 6. Venous stasis dermatitis Status Chronic Onset Date Unknown Plan -Patient with findings suggestive of venous stasis dermatitis -Leg elevation -Diuretic therapy -Topical corticosteroids -Elver wraps lower legs -Monitor 7. COPD (chronic obstructive pulmonary disease) Status Chronic Onset Date Unknown Plan Current status: Fair, unstable Anticipated discharge date: Anticipated discharge 1-2 days Anticipated discharge placement: Home Patient care time: Time spent in chart review, patient interview, physical exam, CPOE, and care documentation: 70 minutes Visit to patient today: 1 Complexity of care: High E&M Codes Admission: Obsv-Comp/High/[id number]
--- NOTE | 2016-09-01 20:34 | Progress Note ---
Subjective General Admission History and Physical Examination Patient Name: Massiel Larson Admission Date: September 01, 2016 Primary Care Provider: Rey Hurd M.D. Attending Physician: Te Alvarenga M.D. Admitting Physician: Te Alvarenga M.D. Code Status: Full Code Room: 208 SUBJECTIVE Historian: Patient Reliability: Fair Chief Complaint: Infected legs History of Present Illness: The patient is a 61-year-old morbidly obese white female with a significant past medical history of venous stasis dermatitis lower extremities, COPD, hypertension, osteoarthritis, depression, bipolar disorder, hepatitis C, who presented to [facility] emergency department on the day of admission secondary to complaints of bilateral lower extremity cellulitis unresponsive to outpatient oral antibiotic therapy. [facility] ER evaluation was consistent with bilateral lower leg cellulitis unresponsive to outpatient therapy. Secondary to the above, the patient was admitted by Te Alvarenga M.D. for further evaluation and treatment. 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 Patient was seen by PCP and received 2 courses of outpatient ATB's totaling 20 days of treatment. Patient noted no change in LE swelling, redness, pain. Secondary to the above, the patient presented to [facility] ER. ER evaluation suggestive of cellulitis bilat LE versus venous stasis dermatitis. Pt admitted for further evaluation and treatment. PAST MEDICAL HISTORY Illnesses: 1. Hypertension 2. COPD 3. Osteoarthritis 4. Osteoporosis 5. Depression 6. Bipolar disorder 7. History of hepatitis C status post treatment-JANKI 8. Morbid obesity Allergies: 1. Thorazine Medications: 1. Albuterol neb 2.5 mg every 6 hours when necessary shortness of breath 2. Symbicort 1 inhalation twice a day 3. Calcitriol 0.25 g 1 by mouth daily 4. Fluoxetine 20 mg by mouth daily 5. Lisinopril 40 mg by mouth daily 6. Centrum Silver 1 by mouth daily 7. Prilosec 20 mg by mouth daily 8. Risperdal 2 mg by mouth daily at bedtime 9. Spiriva one inhalation daily 10. Dicloxacillin dosage unknown Surgery: 1. Hysterectomy 2. Removal of benign ovarian tumor 3. Appendectomy 4. Colonoscopy 2010 Injuries: 1. No significant Hospitalizations: 1. For above surgery and medical problems FAMILY HISTORY Parents: 1. Father, living, 96, healthy, 2. Mother, living, 94, healthy Siblings: 1. Male, Blaine, living, 65, healthy 2. Male, Elroy, living, 61, healthy Children: 1. Male, Te, living, disability secondary to motor vehicle accident 2. Male, Cirilo, living, healthy Other significant family history: None SOCIAL HISTORY 1. Marital Status: 2. Orthodoxy: None 3. Education: 10th grade 4. 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 Occupational health exposures: None 6. Residence: Patient currently lives with her son HABITS 1. Tobacco: Former smoker stopped smoking 2007, 130 pack years pack years 2. Drugs: Marijuana 3. Alcohol: Rare usage 4. Caffeine: 3 cups coffee per day HEALTH SUPERVISION Item/Test 1. Vision screen: Unknown 2. Cholesterol Profile: Unknown 3. PSA: Not applicable 4. EMILIE: Not applicable 5. FOBT: Unknown 6. Blood Glucose: 2016 7. Colonoscopy: 2003 8. History and physical exam: Unknown 9. Audiogram: Unknown 10. Mammogram: 2015 04. Pap/pelvic exam: No recent, status post hysterectomy IMMUNIZATIONS: 1. Pneumococcal: 2015 2. Influenza: 2016 3. Tetanus: Unknown 4. Shingles vaccine: 2015 ADVANCED DIRECTIVES: 1. Living well: No 2. POLST: No 3. CODE STATUS: FULL CODE 4. Durable Power Cap Sizer Health care: No 5. Donor card: No REVIEW OF SYSTEMS Remarkable for those things stated in the history of present illness and past medical history. Seventeen point review of system completed with the following notable findings: General: Weight gain, pain, weakness, fatigue Skin: Rash, dryness Ears: Drainage Lungs: Shortness of breath, cough, wheezing, COPD Cardiovascular: Ankle edema, pain with ambulation, shortness of breath with exertion, shortness of breath when lying flat, chest tightness Musculoskeletal: Joint stiffness, joint pain, backache Neurological: Tremors, headaches Psychological: Difficulty sleeping, anxiety Physical Exam Vital Signs / I&Os Vital Signs Date Time Temp Pulse Resp B/P Pulse O2 O2 Flow FiO2 Ox Delivery Rate 09/02 2011 98.2 80 16 133/72 93 2.0 General Appearance Alert, Oriented X3, Cooperative, No acute distress HEENT Atraumatic, PERRLA, EOMI, Moist mucous membranes Lungs Minimal expiratory wheezes bilaterally. Decreased air movement bilaterally Neck Supple, No JVD Cardiovascular Regular rate and rhythm, Normal S1 and S2, No murmurs, gallops, rubs Abdomen Normal bowel sounds, Soft, No tenderness Extremities No cyanosis, No clubbing, 3+ edema, diffuse erythema from ankle to above the knees bilaterally. No clear induration. Tender to palpation. Skin See above Neurological Cranial nerves intact, Strength 5/5 x4 ext's, No lateralizing signs Psych/Mental Status Mental status normal, Mood normal LAB Results Laboratory Tests 09/01 181 181 181 Chemistry Plasma Sodium (136 - 145 mmol/L) 139 Plasma Potassium (3.5 - 5.1 mmol/L) 4.4 Plasma Chloride (98 - 107 mmol/L) 100 CO2 (Enzymatic) (21 - 32 mmol/L) 28 BUN (7 - 18 mg/dL) 15 Creatinine (0.6 - 1.3 mg/dL) 1.4 Est GFR ( Amer) (mL/min) 48.92 Est GFR (Non-Af Amer) (mL/min) 40.37 Glucose (70 - 110 mg/dL) 123 Lactic Acid (0.4 - 2.0 mmol/L) 1.6 Plasma Calcium (8.5 - 10.1 mg/dL) 8.8 Total Bilirubin (0.0 - 1.0 mg/dL) 0.2 AST (15 - 37 U/L) 13 ALT (12 - 78 U/L) 20 Alkaline Phosphatase (46 - 116 U/L) 96 B-Natriuretic Peptide (5 - 100 pg/ml) 16.1 Total Protein (6.4 - 8.2 g/dL) 6.6 Albumin (3.3 - 5.0 g/dL) 3.6 Procalcitonin (0 - 0.5 ng/mL) <0.5 Hematology WBC (4.5 - 11.5 K/uL) 10.0 RBC (4.00 - 5.20 M/uL) 3.77 Hgb (12.0 - 16.0 gm/dL) 11.9 Hct (36.0 - 46.0 %) 35.5 MCV (80 - 100 fL) 94 MCH (26 - 34 pg) 32 RDW (11.6 - 14.8 %) 14.7 Neut % (Auto) (50 - 75 %) 78.8 Lymph % (Auto) (25 - 40 %) 9.2 [place] % (Auto) (3 - 14 %) 7.4 Eos % (Auto) (0 - 4 %) 1.6 Baso % (Auto) (0 - 2 %) 3.0 Plt Count, EDTA (150 - 400 K/uL) 323 PUBS MCHC (31 - 37 g/dL) 34 Imaging Venous Doppler and Ultrasound-Bilateral Lower Extremities IMPRESSION: 1. No deep venous thrombosis in either lower extremity. 2. Bilateral calf edema. Dictated by: TRACE BULL MD D: JASON;09/01/16 5931 Assessment and Plan Problem List 1. Bilateral cellulitis of lower leg Plan -Patient presents with swollen, erythematous legs. -Unresponsive to outpatient antimicrobial therapy 20 days. -Persistent edema and erythema with associated tenderness to palpation. -Patient denies history of fever and chills over the past 3 weeks. -High likelihood this represents venous stasis dermatitis but cannot exclude cellulitis -Vancomycin per pharmacy protocol -Leg elevation, diuretic therapy, venous compression wraps, topical corticosteroids in the form of triamcinolone -Monitor 2. HTN (hypertension) Plan -Patient with long-standing history of hypertension. -Continue lisinopril, Lopressor, Lasix -Monitor -Low-salt diet 3. CKD (chronic kidney disease) stage 3, GFR 30-59 ml/min Status Acute Onset Date Unknown Plan -Patient with findings of mild elevation of creatinine at 1.4. -Monitor 4. Hyperglycemia Status Acute Onset Date Unknown Plan -Patient with findings of hyperglycemia -Check hemoglobin A1c -Monitor before meals and at bedtime blood sugar -Consider insulin sliding scale for persistent elevation of blood glucose. 5. Obesity Status Chronic Onset Date Unknown Plan -Patient with findings of morbid obesity -We'll encourage weight reduction program -Dietary consultation 6. Venous stasis dermatitis Status Chronic Onset Date Unknown Plan -Patient with findings suggestive of venous stasis dermatitis -Leg elevation -Diuretic therapy -Topical corticosteroids -Elver wraps lower legs -Monitor 7. COPD (chronic obstructive pulmonary disease) Status Chronic Onset Date Unknown Plan Current status: Fair, unstable Anticipated discharge date: Anticipated discharge 1-2 days Anticipated discharge placement: Home Patient care time: Time spent in chart review, patient interview, physical exam, CPOE, and care documentation: 70 minutes Visit to patient today: 1 Complexity of care: High E&M Codes Admission: Obsv-Comp/High/[id number]
[2016-09-01] MEDS ORDERED: RISPERDAL1 MG PO (22:56)
--- NOTE | 2016-09-01 23:40 | ED DISCHARGE INSTRUCTIONS ---
Patient: GREGG KEARNEY General Instructions [facility] VisitID: [id number] [address] [place] [address] 61y, F Registration Date/Time: 09/01/2016 Cellulitis of the right lower leg and left lower leg. (Electronically signed by Sam Leroy DO 09/01/2016 22:16)
--- NOTE | 2016-09-01 23:40 | ED DISCHARGE INSTRUCTIONS ---
Patient: GREGG KEARNEY General Instructions [facility] VisitID: [id number] [address] [place] [address] 61y, F Registration Date/Time: 09/01/2016 Cellulitis of the right lower leg and left lower leg. (Electronically signed by Sam Leroy DO 09/01/2016 22:16)
--- NOTE | 2016-09-01 23:40 | ED MED RECONCILIATION SUMMARY ---
Patient: GREGG KEARNEY Medication Reconciliation Report [facility] VisitID: [id number] [address] [place] [address] 61y, F Registration Date/Time: 09/01/2016 Weight: 147.4 kg Height/Length: 66 in. BMI: 52.5 ALLERGIES: Thorazine The patient's Home Medications are listed below: THE FOLLOWING MEDICATIONS NEED TO BE RECONCILED: Calcium Citrate Oral Centrum Silver Oral Dicloxacillin Sodium Oral FLUoxetine HCl Oral Furosemide Oral Lisinopril Oral Metoprolol Succinate ER Oral Omeprazole Oral RisperiDONE Oral Spiriva HandiHaler Inhalation Symbicort Inhalation The source(s) of the original Home Medication information: Not obtained. The following Medications were given to the patient in the Emergency Department: IV NS IV Fluids bolus 0, then 999 mL/hr, administered: 09/01/2016 6:11:00 PM Vancomycin [IVPB] IVPB bolus 0, then 2 gm 270 mL/hr, administered: 09/01/2016 6:47:00 PM Dilaudid [IVP] IVP 0.5 mg, administered: 09/01/2016 6:54:00 PM Zofran [IVP] IVP 4 mg, administered: 09/01/2016 6:54:00 PM The following Medications were prescribed to the patient: None.
--- NOTE | 2016-09-01 23:40 | ED MAR SUMMARY ---
..... Medication Administration Record [facility] [address] [place] [address] Patient: GREGG KEARNEY Visit ID: [id number] 61y, F Weight: 147.4 kg Height/Length: 66 in BMI: 52.5 ALLERGIES: Thorazine Start 18:11 09/01/2016 Shanthi Ibarra R.N., Stop 20:59 09/01/2016 Shanthi Ibarra R.N. Medication Administered: IV NS (SALINE), Dose: IV Fluids over 1 hour(s), Rate: 999 mL/hr, Dispensed: 1000 mL bag, Site: #1 right wrist. Medication Ordered: IV NS : initial bolus 1000 mL (1000 mL/hr), then 250 mL/hr for X4 (NOW). Start 18:47 09/01/2016 Shanthi Ibarra R.N., Stop 20:59 09/01/2016 Shanthi Ibarra R.N. Medication Administered: VANCOMYCIN [IVPB], Dose: 2 gm IVPB over 2 hour(s), Rate: 270 mL/hr, Dispensed: 500 mL bag, Site: #1 right wrist. Medication Ordered: Vancomycin IV 2 gm/500 mL (NOW). Given 18:54 09/01/2016 Shanthi Ibarra R.N. Medication Administered: DILAUDID [IVP] (HYDROMORPHONE HCL PF), Dose: 0.5 mg IVP over 1 minute(s), Site: #1 right wrist. Medication Ordered: Dilaudid IV 0.5 mg (HIGH ALERT MEDICATION, NOW). Given 18:54 09/01/2016 Shanthi Ibarra R.N. Medication Administered: ZOFRAN [IVP] (ONDANSETRON HCL), Dose: 4 mg IVP over 1 minute(s), Site: #1 right wrist. Medication Ordered: Zofran IV 4 mg (NOW).
--- NOTE | 2016-09-01 23:40 | ED MAR SUMMARY ---
..... Medication Administration Record [facility] [address] [place] [address] Patient: GREGG KEARNEY Visit ID: [id number] 61y, F Weight: 147.4 kg Height/Length: 66 in BMI: 52.5 ALLERGIES: Thorazine Start 18:11 09/01/2016 Shanthi Ibarra R.N., Stop 20:59 09/01/2016 Shanthi Ibarra R.N. Medication Administered: IV NS (SALINE), Dose: IV Fluids over 1 hour(s), Rate: 999 mL/hr, Dispensed: 1000 mL bag, Site: #1 right wrist. Medication Ordered: IV NS : initial bolus 1000 mL (1000 mL/hr), then 250 mL/hr for X4 (NOW). Start 18:47 09/01/2016 Shanthi Ibarra R.N., Stop 20:59 09/01/2016 Shanthi Ibarra R.N. Medication Administered: VANCOMYCIN [IVPB], Dose: 2 gm IVPB over 2 hour(s), Rate: 270 mL/hr, Dispensed: 500 mL bag, Site: #1 right wrist. Medication Ordered: Vancomycin IV 2 gm/500 mL (NOW). Given 18:54 09/01/2016 Shanthi Ibarra R.N. Medication Administered: DILAUDID [IVP] (HYDROMORPHONE HCL PF), Dose: 0.5 mg IVP over 1 minute(s), Site: #1 right wrist. Medication Ordered: Dilaudid IV 0.5 mg (HIGH ALERT MEDICATION, NOW). Given 18:54 09/01/2016 Shanthi Ibarra R.N. Medication Administered: ZOFRAN [IVP] (ONDANSETRON HCL), Dose: 4 mg IVP over 1 minute(s), Site: #1 right wrist. Medication Ordered: Zofran IV 4 mg (NOW).
--- NOTE | 2016-09-01 23:40 | ED MED RECONCILIATION SUMMARY ---
Patient: GREGG KEARNEY Medication Reconciliation Report [facility] VisitID: [id number] [address] [place] [address] 61y, F Registration Date/Time: 09/01/2016 Weight: 147.4 kg Height/Length: 66 in. BMI: 52.5 ALLERGIES: Thorazine The patient's Home Medications are listed below: THE FOLLOWING MEDICATIONS NEED TO BE RECONCILED: Calcium Citrate Oral Centrum Silver Oral Dicloxacillin Sodium Oral FLUoxetine HCl Oral Furosemide Oral Lisinopril Oral Metoprolol Succinate ER Oral Omeprazole Oral RisperiDONE Oral Spiriva HandiHaler Inhalation Symbicort Inhalation The source(s) of the original Home Medication information: Not obtained. The following Medications were given to the patient in the Emergency Department: IV NS IV Fluids bolus 0, then 999 mL/hr, administered: 09/01/2016 6:11:00 PM Vancomycin [IVPB] IVPB bolus 0, then 2 gm 270 mL/hr, administered: 09/01/2016 6:47:00 PM Dilaudid [IVP] IVP 0.5 mg, administered: 09/01/2016 6:54:00 PM Zofran [IVP] IVP 4 mg, administered: 09/01/2016 6:54:00 PM The following Medications were prescribed to the patient: None.
[2016-09-02 01:57] VITALS: BP 144/59
[2016-09-02 07:03] VITALS: BP 111/56
[2016-09-02 10:35] VITALS: BP 150/85
[2016-09-02 14:52] VITALS: BP 145/88
--- NOTE | 2016-09-02 16:51 | Progress Note ---
Subjective General Patient seen and examined, patient has some improvement in the swelling and the erythema of the legs however the patient has no other symptoms currently. Patient has been complaining of shortness of breath however the patient has improved air exchange in comparison to yesterday. Constitutional Denies: Fever, Chills, Sweats, Weakness, Malaise, Other. Eyes Denies: Pain, Vision Change, Conjunctival Inflammation, Eyelid Inflammation, Redness, Other. ENT Denies: Ear Pain, Ear Discharge, Nose Pain, Nasal Discharge, Nasal Congestion, Mouth Pain, Mouth Swelling, Throat Pain, Throat Swelling, Other. Respiratory Wheezing. Denies: Cough, Dry, SOB w/exertion, Hemoptysis, Pleuritic Pain, Sputum, Other. Cardiovascular Denies: Chest Pain, Palpitations, Orthopnea, PND, Edema, Light-headedness, Other. Gastrointestinal Denies: Nausea, Vomiting, Abdominal Pain, Diarrhea, Constipation, Melena, Hematochezia, Other. Genitourinary Denies: Dysuria, Frequency, Incontinence, Hematuria, Retention, Other. Musculoskeletal Denies: Neck Pain, Shoulder Pain, Arm Pain, Back Pain, Hand Pain, Leg Pain, Foot Pain, Other. Skin Denies: Rash, Lesions, Jaundice, Bruising, Other. Neurological Denies: Weakness, Numbness, Incoordination, Change in speech, Confusion, Seizures, Other. Physical Exam Vital Signs / I&Os Vital Signs Date Time Temp Pulse Resp B/P Pulse O2 O2 Flow FiO2 Ox Delivery Rate 09/03 1801 98.6 77 22 141/83 91 Room Air 09/03 1437 98.1 77 20 91/72 95 Nasal 2.0 Cannula 09/03 1322 2.0 09/03 1035 98.4 75 20 155/75 93 Nasal 2.0 Cannula 09/03 0815 2.0 09/03 0721 2.0 09/03 0652 98.4 68 21 131/88 91 Nasal 2.0 Cannula 09/03 0312 98.4 68 20 106/78 93 Nasal 2.0 Cannula 09/03 0154 2.0 09/02 2230 Nasal 2.0 Cannula 09/02 223 86 Room Air 09/02 2224 98.1 70 20 144/92 93 Nasal 2.0 Cannula 09/02 1914 2.0 09/02 1808 98.2 78 24 145/95 95 Nasal 2.0 Cannula I&O 09/02 0800 09/02 1600 09/03 0000 Intake Total 521 927 240 Output Total 550 1500 1350 Balance -29 -573 -1110 General Appearance Alert, Oriented X3, No acute distress HEENT Atraumatic, PERRLA, EOMI, Moist mucous membranes Lungs Normal exam, Clear to auscultation, Normal air movement Cardiovascular Regular rate and rhythm, No murmurs, gallops, rubs Abdomen Soft, No tenderness, No rebound, No masses, No hepatosplenomegaly Extremities No edema, Normal pulses, No tenderness, Strength = upper ext's, Strength = lower ext's Skin No Breakdown, No Significant Lesions Neurological Normal speech, Normal tone, Cranial nerves intact, Strength 5/5 x4 ext's Psych/Mental Status - anxious Assessment and Plan Problem List 1. Venous stasis dermatitis Status Chronic Onset Date Unknown Plan - will c/w triamterene cream - will c/w leg elevation - less likely cellulitis and it is looking more like venous stasis 2. Atrial fibrillation Status Acute Onset Date 10/23/15 Plan - will c/w home medication - currently stable 3. HTN (hypertension) Plan - will c/w pts home medication - blood pressures have been appropriate thus far
[2016-09-02 18:08] VITALS: BP 145/95
[2016-09-02 22:24] VITALS: BP 144/92
[2016-09-03 03:12] VITALS: BP 106/78
[2016-09-03 06:52] VITALS: BP 131/88
[2016-09-03 10:35] VITALS: BP 155/75
[2016-09-03 14:37] VITALS: BP 91/72
[2016-09-03 18:02] VITALS: BP 141/83
--- NOTE | 2016-09-03 18:12 | Progress Note ---
Subjective General Patient seen and examined, some improvement with triamterene application. No uniform improvement as in typical cellulitis Constitutional Weakness. Denies: Fever, Chills, Sweats, Malaise, Other. Eyes Denies: Pain, Vision Change, Conjunctival Inflammation, Eyelid Inflammation, Redness, Other. Respiratory Denies: Cough, Dry, SOB w/exertion, Wheezing, Hemoptysis, Pleuritic Pain, Sputum , Other. Cardiovascular Denies: Chest Pain, Palpitations, Orthopnea, PND, Edema, Light-headedness, Other. Gastrointestinal Denies: Nausea, Vomiting, Abdominal Pain, Diarrhea, Constipation, Melena, Hematochezia, Other. Genitourinary Denies: Dysuria, Frequency, Incontinence, Hematuria, Retention, Other. Musculoskeletal Leg Pain. Denies: Neck Pain, Shoulder Pain, Arm Pain, Back Pain, Hand Pain, Foot Pain, Other. Skin Other (redness of the lower extremiti). Neurological Denies: Weakness, Numbness, Incoordination, Change in speech, Confusion, Seizures, Other. Physical Exam Vital Signs / I&Os Vital Signs Date Time Temp Pulse Resp B/P Pulse O2 O2 Flow FiO2 Ox Delivery Rate 09/04 1435 97.9 89 20 113/71 90 Nasal 2.0 Cannula 09/04 1348 2.0 09/04 1130 98.8 83 20 127/54 92 Nasal 2.0 Cannula 09/04 0945 2.0 09/04 0837 98.1 74 20 134/86 95 Nasal 2.0 Cannula 09/04 0829 2.0 09/04 0355 2.0 09/04 0310 97.9 72 20 122/78 92 Nasal 2.0 Cannula 09/04 0255 2.0 09/03 2238 98.4 75 20 138/87 93 Nasal 2.0 Cannula 09/03 2145 Nasal 2.0 Cannula 09/03 2027 2.0 09/03 1810 88 Room Air 09/03 1802 98.6 77 22 141/83 91 Room Air I&O 09/03 0800 09/03 1600 09/04 0000 Intake Total 2040 1376 1080 Output Total 650 1900 1800 Balance 1390 -524 -720 General Appearance Alert, Oriented X3, No acute distress HEENT Atraumatic, PERRLA, Moist mucous membranes Lungs Clear to auscultation, - end expiratory wheezes from forced expiration Cardiovascular Regular rate and rhythm, No murmurs, gallops, rubs Abdomen Soft, No tenderness, No rebound, No masses Extremities No edema, Normal pulses, Strength = upper ext's, Strength = lower ext's, - tenderness to palpation of lower extremities Skin - bilateral redness of lower extremiteis - more mottled appearance Neurological Normal speech, Sensation intact, Cranial nerves intact, No lateralizing signs LAB Results Laboratory Tests 09/04 09/04 0528 0729 Chemistry Plasma Sodium (136 - 145 mmol/L) 136 Plasma Potassium (3.5 - 5.1 mmol/L) 4.2 Plasma Chloride (98 - 107 mmol/L) 98 CO2 (Enzymatic) (21 - 32 mmol/L) 29 BUN (7 - 18 mg/dL) 16 Creatinine (0.6 - 1.3 mg/dL) 1.0 Est GFR ( Amer) (mL/min) >60 Est GFR (Non-Af Amer) (mL/min) 59.52 Glucose (70 - 110 mg/dL) 122 Plasma Calcium (8.5 - 10.1 mg/dL) 9.0 Total Bilirubin (0.0 - 1.0 mg/dL) 0.2 AST (15 - 37 U/L) 14 ALT (12 - 78 U/L) 18 Alkaline Phosphatase (46 - 116 U/L) 66 Total Protein (6.4 - 8.2 g/dL) 5.8 Albumin (3.3 - 5.0 g/dL) 3.1 Hematology WBC (4.5 - 11.5 K/uL) 10.8 RBC (4.00 - 5.20 M/uL) 3.35 Hgb (12.0 - 16.0 gm/dL) 10.6 Hct (36.0 - 46.0 %) 31.5 MCV (80 - 100 fL) 94 MCH (26 - 34 pg) 32 RDW (11.6 - 14.8 %) 14.6 Neut % (Auto) (50 - 75 %) 81.4 Lymph % (Auto) (25 - 40 %) 10.5 [place] % (Auto) (3 - 14 %) 5.7 Eos % (Auto) (0 - 4 %) 1.8 Baso % (Auto) (0 - 2 %) 0.6 Plt Count, EDTA (150 - 400 K/uL) 256 PUBS MCHC (31 - 37 g/dL) 34 Toxicology Vancomycin Trough (10.0 - 20.0 ug/mL) 17.2 Assessment and Plan Problem List 1. Venous stasis dermatitis Status Chronic Onset Date Unknown Plan - will c/w triamterene - will c/w compression stockings and leg elevation - if improvement continues will recommend discharging patient tomorrow 2. COPD (chronic obstructive pulmonary disease) Status Chronic Onset Date Unknown Plan - stable - no evidence of exacerbation - wheezes are only end expiratory 3. CKD (chronic kidney disease) stage 3, GFR 30-59 ml/min Status Acute Onset Date Unknown Plan - stable 4. HTN (hypertension) Plan - will c/w medication
[2016-09-03 22:38] VITALS: BP 138/87
[2016-09-04 03:10] VITALS: BP 122/78
[2016-09-04 08:37] VITALS: BP 134/86
[2016-09-04 11:30] VITALS: BP 127/54
[2016-09-04 14:35] VITALS: BP 113/71
[2016-09-04] MEDS ORDERED: ARISTOCORT EQUI15 GM TOP (15:29)
[2016-09-04] MEDS ORDERED: [UNRECOGNIZED DRUG - SUPPLY] (15:30)
--- NOTE | 2016-09-04 15:33 | Provider's Discharge Care Plan ---
Problem, Goal, Plan Problem List 1. Venous stasis dermatitis Instructions: - apply triamcenelone cream to both legs and place venous stockings on - use venous stockings while standing and keep legs elevated while lying down 2. COPD (chronic obstructive pulmonary disease) Instructions: - you will remain on oxygen for the time being - you will need to follow up with your pmd - you will need an appointment with a photo producer 3. HTN (hypertension)
--- NOTE | 2016-09-04 15:33 | Provider's Discharge Care Plan ---
Problem, Goal, Plan Problem List 1. Venous stasis dermatitis Instructions: - apply triamcenelone cream to both legs and place venous stockings on - use venous stockings while standing and keep legs elevated while lying down 2. COPD (chronic obstructive pulmonary disease) Instructions: - you will remain on oxygen for the time being - you will need to follow up with your pmd - you will need an appointment with a general warehouse worker 3. HTN (hypertension)
--- NOTE | 2016-09-04 16:03 | Discharge Summary ---
Discharge Summary Report Admit Date 09/01/16 Discharge Date 09/04/16 Admission Diagnosis uti Discharge Diagnosis uti and anemia secondary to gastro-intestinal losses Brief History The patient is a 61-year-old morbidly obese white female with a significant past medical history of venous stasis dermatitis lower extremities, COPD, hypertension, osteoarthritis, depression, bipolar disorder, hepatitis C, who presented to [facility] emergency department on the day of admission secondary to complaints of bilateral lower extremity cellulitis unresponsive to outpatient oral antibiotic therapy. [facility] ER evaluation was consistent with bilateral lower leg cellulitis unresponsive to outpatient therapy. Secondary to the above, the patient was admitted by Te Alvarenga M.D. for further evaluation and treatment. 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 Patient was seen by PCP and received 2 courses of outpatient ATB's totaling 20 days of treatment. Patient noted no change in LE swelling, redness, pain. Secondary to the above, the patient presented to [facility] ER. ER evaluation suggestive of cellulitis bilat LE versus venous stasis dermatitis. Pt admitted for further evaluation and treatment. Hospital Course Patient was admitted seen to have bilateral redness and swelling of bilateral lower extremity swelling. Patient was admitted for bilateral cellulitis and treated with IV antibiotics and leg elevation. Patient had little to no improvement following the antibiotics. Patient was then recommmend to have triamterene cream placed on her legs and to have her legs wrapped. Patient had improvment of the redness, and it began to look more mottled rather than uniformly red. Patient was told that this is venous stasis dermatitis, and that she would improve significantly with venous compressio stockings and continuuing her triamterene. Patient was additionally seen to be saturating low on room air. Patient is a known COPD patient and she did not appear to be in COPD exacerbation. Patient will be discharged with oxygen 2 L. Patient will need to follow up with her primary care physician and she will need an appointment with a park manager. General Appearance Alert, Oriented X3, No acute distress Lungs - end expiratory wheezes secondary to forced expiration - wheezes diminish when patient is distracted Cardiovascular Normal S1, Normal S2, No murmurs Abdomen Soft, No tenderness Skin No Breakdown, No Significant Lesions Neurological Normal speech, Normal tone, Sensation intact, Cranial nerves 3-12 NL Discharge Instructions/Meds - c/w triamterene and compression stockings - follow up with your primary care provider
--- NOTE | 2016-09-04 16:03 | Discharge Summary ---
Discharge Summary Report Admit Date 09/01/16 Discharge Date 09/04/16 Admission Diagnosis uti Discharge Diagnosis uti and anemia secondary to gastro-intestinal losses Brief History The patient is a 61-year-old morbidly obese white female with a significant past medical history of venous stasis dermatitis lower extremities, COPD, hypertension, osteoarthritis, depression, bipolar disorder, hepatitis C, who presented to [facility] emergency department on the day of admission secondary to complaints of bilateral lower extremity cellulitis unresponsive to outpatient oral antibiotic therapy. [facility] ER evaluation was consistent with bilateral lower leg cellulitis unresponsive to outpatient therapy. Secondary to the above, the patient was admitted by Te Alvarenga M.D. for further evaluation and treatment. 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 Patient was seen by PCP and received 2 courses of outpatient ATB's totaling 20 days of treatment. Patient noted no change in LE swelling, redness, pain. Secondary to the above, the patient presented to [facility] ER. ER evaluation suggestive of cellulitis bilat LE versus venous stasis dermatitis. Pt admitted for further evaluation and treatment. Hospital Course Patient was admitted seen to have bilateral redness and swelling of bilateral lower extremity swelling. Patient was admitted for bilateral cellulitis and treated with IV antibiotics and leg elevation. Patient had little to no improvement following the antibiotics. Patient was then recommmend to have triamterene cream placed on her legs and to have her legs wrapped. Patient had improvment of the redness, and it began to look more mottled rather than uniformly red. Patient was told that this is venous stasis dermatitis, and that she would improve significantly with venous compressio stockings and continuuing her triamterene. Patient was additionally seen to be saturating low on room air. Patient is a known COPD patient and she did not appear to be in COPD exacerbation. Patient will be discharged with oxygen 2 L. Patient will need to follow up with her primary care physician and she will need an appointment with a whizzer hand. General Appearance Alert, Oriented X3, No acute distress Lungs - end expiratory wheezes secondary to forced expiration - wheezes diminish when patient is distracted Cardiovascular Normal S1, Normal S2, No murmurs Abdomen Soft, No tenderness Skin No Breakdown, No Significant Lesions Neurological Normal speech, Normal tone, Sensation intact, Cranial nerves 3-12 NL Discharge Instructions/Meds - c/w triamterene and compression stockings - follow up with your primary care provider
[2016-09-08] MEDS ORDERED: ARISTOCORT EQUI15 GM TOP (14:02)
== END 2016-09-04 18:45 | disposition home or self-care (01) ==
LOC: ED SRH 17:04 → TRANS SRH 19:58 → ACUTE2 SRH 19:58
PROVIDERS: ADMIT Emergency Medicine
DX: I87.2 Venous insufficiency (chronic) (peripheral) (principal); R73.9 Hyperglycemia, unspecified; I48.91 Unspecified atrial fibrillation; J44.9 Chronic obstructive pulmonary disease, unspecified; I12.9 Hypertensive chronic kidney disease with stage 1 through stage 4 chronic kidney disease, or unspecified chronic kidney disease; N18.3 Chronic kidney disease, stage 3 (moderate); B18.2 Chronic viral hepatitis C; F41.9 Anxiety disorder, unspecified; F31.9 Bipolar disorder, unspecified
CPT/HCPCS: 29230; 29244; 29247; 29251; 29263; 85241; 85244; 90047; 90074; 90098; 90100; 91286; 91320; 91504; 91505; 91583; 91585; 92031; 92668; 92670; 92760; 92761; 92762; 92763; 92764; 92765; 92766; 92767; 93004; 93140; 95059; 95150

== ENCOUNTER 2016-12-23 18:14 | Inpatient (IN) | payer MEDICARE ==
[~2016-12-23] VITALS: Ht 170.2 cm; Wt 147.5 kg
[~2016-12-23 18:14] MED LIST changes: +ARISTOCORT EQUI15 GM TOP; +[UNRECOGNIZED DRUG - SUPPLY]
--- NOTE | 2016-12-23 20:20 | ED NURSING NOTES ---
Clinical Report - Nurses [place] [place] [address] [place] [address] 12/23/2016 18:13 Patient: GREGG KEARNEY TRIAGE Triage time 18:18 Dec 23 2016. Acuity: LEVEL 3. Chief Complaint: ABDOMINAL PAIN and (weakness). KARLENE COMA SCORE: [place] Coma Scale: 15- eyes open spontaneously (4); best verbal response- oriented x 4 (5); best motor response- obeys commands (6). --18:22 Ziyad Hagen R.N. 18:18 12/23/16. BP: 138/66. HR: 76. RR: 22. O2 saturation: 97%. Temp: 97.9 F. Pain level now 8/10. --18:22 Ziyad Hagen R.N. Weight: 141.9 kg stated. Height/Length: 66 inches Per Patient. BMI: 50.5. --18:20 Ziyad Hagen R.N. Medications Centrum Silver Oral, daily. --18:19 Jing Jones R.N. Calcium Citrate Oral. --18:19 Ziyad Hagen R.N. FLUoxetine HCl Oral (Capsule 20 mg) 1 capsule, daily. Furosemide Oral (Tablet 40 mg) 1 tablet, daily. Lisinopril Oral (Tablet 40 mg) 1 tablet, daily. Omeprazole Oral 20 mg, daily. RisperiDONE Oral (Tablet 2 mg) 1 tablet, at bedtime. Spiriva HandiHaler Inhalation 2.5 mcg. --18:19 Jing Jones R.N. Dicloxacillin Sodium Oral. Symbicort Inhalation. --18:19 Ziyad Hagen R.N. Potassium Chloride ER Oral (Capsule Extended Release 10 meq) 1 capsule, BID. --23:07 Jing Jones R.N. Metoprolol Tartrate Oral (Tablet 50 mg) 1 tablet, daily. --23:08 Jing Jones R.N. Calcitriol Oral (Capsule 0.25 mcg) 1 capsule, daily. --23:09 Jing Jones R.N. LORazepam Oral (Tablet 0.5 mg) 1 tablet, at bedtime. --23:11 Jing Jones R.N. The following entry was struck and corrected by Jing Jones R.N., 23:10 (12/23/16) Reason for correction - other(correction). <<[facility]TRY-- Lisinopril Oral. --18:19 Ziyad Hagen R.N. --END STRIKE>> The following entry was struck and corrected by Jing Jones R.N., 23:10 (12/23/16) Reason for correction - other(correction). <<[facility]TRY-- Furosemide Oral. --18:19 Ziyad Hagen R.N. --END STRIKE>> The following entry was struck and corrected by Jing Jones R.N., 23:09 (12/23/16) Reason for correction - other(correction). <<[facility] ENTRY-- RisperiDONE Oral. --18:19 Ziyad Hagen R.N. --END STRIKE>> The following entry was struck and corrected by Jing Jones R.N., 23:09 (12/23/16) Reason for correction - other(correction). <<[facility] ENTRY-- Spiriva HandiHaler Inhalation. --18:19 Ziyad Hagen R.N. --END STRIKE>> The following entry was struck by Jing Jones R.N., 23:08 (12/23/16) Reason - wrong value. <<[facility] ENTRY-- Metoprolol Succinate ER Oral. --18:19 Ziyad Hagen R.N. --END STRIKE>> The following entry was struck and corrected by Jing Jones R.N., 23:07 (12/23/16) Reason for correction - other(correction). <<[facility]TRY-- Omeprazole Oral. --18:19 Ziyad Hagen R.N. --END STRIKE>> The following entry was struck and corrected by Jing oJnes R.N., 23:06 (12/23/16) Reason for correction - other(correction). <<[facility]-- FLUoxetine HCl Oral. --18:19 Ziyad Hagen R.N. --END STRIKE>> The following entry was struck and corrected by Jign Jones R.N., 23:05 (12/23/16) Reason for correction - other(correction). <<[facility]-- Centrum Silver Oral. --18:19 Ziyad Hagen R.N. --END STRIKE>>. Allergies Thorazine. Definite(Anaphylaxis) --18:19 Ziyad Hagen R.N. History Arrived by EMS. Historian: patient. Accompanied by family. ( one week weakness and abdominal pain today.). She has had abdominal pain. PAST MEDICAL HX: Immunizations: up-to-date. SOCIAL HX: Former smoker, end date 2009. History of drug use: marijuana. No alcohol use. No recent travel. She has had contact with a sick family member. SELF HARM ASSESSMENT: A self harm assessment was performed. The patient answered "no" to the question "Have you recently felt down, depressed, or hopeless?" and "Do you have thoughts of harming or killing yourself?". FALL RISK ASSESSMENT: Fall risk assessment completed. No fall risk identified. NUTRITIONAL RISK ASSESSMENT: The nutritional risk assessment revealed no deficiencies. FUNCTIONAL ASSESSMENT: Functional assessment: no impairments noted. LEARNING NEEDS ASSESSMENT: The learning needs assessment revealed no barriers. ABUSE ASSESSMENT: Abuse assessment: (yes) The patient was asked "Do you feel safe in your home?". SKIN INTEGRITY ASSESSMENT: Skin integrity risk assessment completed. No skin integrity risk identified. --18:22 Ziyad Hagen R.N. PROBLEMS: Cellulitis. Leukocytosis. Iv Drug Use. Osteoporosis. Arthritis. Hypertension. Hepatitis C. COPD - Chronic Obstructive Pulmonary Disease. Anxiety. Depression. --18:19 Ziyad Hagen R.N. ADDITIONAL SURGERIES: Appendectomy. Hysterectomy. --18:19 Ziyad Hagen R.N. Interventions ID and allergy band on patient. --18:22 Ziyad Hagen R.N. PHYSICAL ASSESSMENT To room via stretcher. GENERAL / NEURO / PSYCH: Alert. Oriented X 4. Appears in pain, anxious and in distress. RESPIRATORY: Mild respiratory distress. ( COPD hx on O2 at home). CVS: Normal sinus rhythm noted. Capillary refill less than 2 seconds. GI / : Abdominal distention. Abdominal tenderness. Bowel sounds within normal limits. SKIN: Skin is warm and dry. ( bilat leg weeping and swelling from a sugar scrub done with her pedicure. Was on antibiotics now they have finished and legs still weeping.). --18:26 Ziyad Hagen R.N. NURSING PROGRESS NOTES The initial plan of care for this patient includes an assessment with efforts to address patient positioning, appropriate ambient lighting and comfortable environmental temperature; impairment of the respiratory, gastrointestinal and genitourinary system. payroll services analyst, pulse oximeter and NIBP monitor placed on patient. Patient gowned. Head of bed elevated 90 degrees. Reassurance given. Call light placed in reach. Side rails up x 2. Bed placed in lowest position. Brakes of bed on. --18:26 Ziyad Hagen R.N. 18:54 12/23/2016 Two (2) unsuccessful IV access attempts. --18:54 Claudine Cabrera R.N. 19:11 12/23/2016 Site #1 started via IV in the left antecubital space with an 20g angiocath, with aseptic technique and good blood return; one attempt. Blood drawn: rainbow set. Labeled in the presence of the patient and sent to the lab. Saline lock flushed with 10 mL saline. --19:19 Jing Jones R.N. 19:33 12/23/2016 Zofran (Ondansetron HCl) IVP 4 mg given over 2 minute(s) via site #1. Allergies verified. IV patency established. IV site checked: no pain, redness, or swelling. IV flushed thoroughly pre- and post-medication administration. IVP given by RN. --19:33 Jing Jones R.N. Two patient identifiers checked. Call light placed in reach. Side rails up x 2. Bed placed in lowest position. Brakes of bed on. --19:34 Jing Jones R.N. 19:15 07/08/17. BP: 126/67 taken on the right arm, while lying. HR: 75 (regular and normal rate). RR: 23 (regular and unlabored). O2 saturation: 92% on nasal cannula at 2 liters/minute. Temp: deferred. Pain level now: 8. Additional comments: abdomen. --19:34 Jing Jones R.N. Overall patient status is the same- she states feels the same. ( family at bedside pt medicated per MD orders, will continue to monitor). GI / : The patient reports abdominal pain located in the central area of the abdomen is still present and worsening and currently moderate in severity, constant, described as sharp and dull and associated with nausea. --19:35 Jing Jones R.N. EKG time: (0 PM). EKG was ordered, performed by a tech and shown to the ED physician. --19:47 Ania Schmidt Critical value relayed to ED by [employer] tech. Critical value received by Maicol ESCOBAR. D-dimer 11.12. Critical value read back. Verified lab result and patient ID. ED physician notifed of critical value. --19:55 Maicol Chavez R.N. 20:22 12/23/2016 Started bag #1 1000 mL IV Fluids IV NS (Saline); bolus of 500 mL over 30 minute(s) via site #1 via IV pump. Allergies verified and confirmed 5 rights. IV patency established. IV site checked: no pain, redness, or swelling. IV flushed thoroughly pre- and post-medication administration. --20:22 Jing Jones R.N. 20:23 12/23/2016 Started 1 gm of Ceftriaxone IVPB in bag #1 50 mL; over 20 minute(s) via site #1 via IV pump. Allergies verified and confirmed 5 rights. IV patency established. IV site checked: no pain, redness, or swelling. IV flushed thoroughly pre- and post-medication administration. --20:23 Jing Jones R.N. 20:27 12/23/2016 Dilaudid (HYDROmorphone HCl PF) IVP 0.5 mg given over 2 minute(s) via site #1. Allergies verified, confirmed 5 rights and sedative warning given to the patient. IV patency established. IV site checked: no pain, redness, or swelling. IV flushed thoroughly pre- and post-medication administration. IVP given by RN. --20:27 Jing Jones R.N. Patient transported to [place] by stretcher with tech. (20:30). --20:30 Jing Jones R.N. 20:00 12/23/16. BP: 127/60 taken on the right arm, while sitting. HR: 77 (regular and normal rate). RR: 18 (regular and unlabored). O2 saturation: 95% on room air. Temp: deferred. Pain level now: 11/25. --20:31 Jing Jones R.N. 20:43 12/23/2016 Ceftriaxone IVPB Discontinued: completed. Total amount infused: 50 mL. IV patency established. IV site checked: no pain, redness, or swelling. IV flushed thoroughly. --20:58 Jing Jones R.N. 20:59 12/23/2016 Started bag #1 1000 mL IV Fluids IV NS (Saline); at 250 mL/hr over 3 hour(s) via site #1 via IV pump. Allergies verified and confirmed 5 rights. IV patency established. IV site checked: no pain, redness, or swelling. IV flushed thoroughly pre- and post-medication administration. --20:59 Jing Jones R.N. 20:59 12/23/2016 IV Fluids IV NS Discontinued: completed. Total amount infused: 500 mL. IV patency established. IV site checked: no pain, redness, or swelling. IV flushed thoroughly. --20:59 Jing Jones R.N. The patient is resting quietly. Overall patient status is improved- she states feels better. Two patient identifiers checked. Call light placed in reach. Side rails up x 2. Bed placed in lowest position. Brakes of bed on. --21:02 Jing Jones R.N. 20:45 12/23/16. BP: 124/44 taken on the right arm, while lying. HR: 80 (regular and normal rate). RR: 20 (regular and unlabored). O2 saturation: 93% on nasal cannula at 3 liters/minute. Temp: 97.8 F (oral). Pain level now: 11/25. --21:02 Jing Jones R.N. ( US in room). --21:56 Jing Jones R.N. 23:11 12/23/16. BP: 107/52. HR: 77. RR: 18. O2 saturation: 94% on nasal cannula at 3 liters/minute. Temp: deferred. Pain level now: 09/25. --23:13 Jing Jones R.N. Overall patient status is the same- she states feels the same. SKIN: Skin is warm and dry. --23:13 Jing Jones R.N. 23:14 12/23/2016 IV Fluids IV NS Discontinued: completed. Total amount infused: 500 mL. IV patency established. IV site checked: no pain, redness, or swelling. IV flushed thoroughly. --23:14 Jing Jones R.N. 23:14 12/23/2016 IV Saline Lock Drip IV Continued: upon admission at the rate of 0 mL/hr. 0 mL remaining bag #1. IV patency established. IV site checked: no pain, redness, or swelling. IV flushed thoroughly. --23:14 Jing Jones R.N. DISPOSITION / DISCHARGE Transported via stretcher by nurse with monitor and IV. Report was given to a nurse via a phone call. Report included patient's care, treatment, medications, reviewed medication reconcilliation, and condition (including any recent changes or anticipated changes). All questions were answered. Report was acknowledged and care was transferred. (Anitra SARGENT @ [phone]). --23:29 Jing Jones R.N. 23:20 12/23/2016 Started 500 mg of Flagyl (MetroNIDAZOLE in NaCl) IVPB in bag #1 100 mL; over 1 hour(s) via site #1 via IV pump. Allergies verified and confirmed 5 rights. IV patency established. IV site checked: no pain, redness, or swelling. IV flushed thoroughly pre- and post-medication administration. --23:29 Jing Jones R.N. 23:29 12/23/2016 Site #[address] upon admission; patent, no pain and no signs of infection or infiltration. Good blood return present. --23:29 Jing Jones R.N. 23:30 12/23/2016 Flagyl IVPB Continued: upon admission at the rate of 100 mL/hr. 75 mL remaining bag #1. IV patency established. IV site checked: no pain, redness, or swelling. IV flushed thoroughly. --23:30 Jing Jones R.N. Departure time: 2355. ( pt transported at 2355). --00:42 Jing Jones R.N. 23:40 12/23/16. BP: 113/52. HR: 71. RR: 20 (regular and unlabored). O2 saturation: 93% on nasal cannula at 3 liters/minute. Temp: 97.9 F (oral). Pain level now: 09/25. --00:42 Jing Jones R.N. Locked/Released at 12/24/2016 0:42 by Jing Jones R.N.
--- NOTE | 2016-12-23 20:20 | ED NURSING NOTES ---
Clinical Report - Nurses [place] [address] [place] [address] 12/23/2016 18:13 Patient: GREGG KEARNEY TRIAGE Triage time 18:18 Dec 23 2016. Acuity: LEVEL 3. Chief Complaint: ABDOMINAL PAIN and (weakness). KARLENE COMA SCORE: [place] Coma Scale: 15- eyes open spontaneously (4); best verbal response- oriented x 4 (5); best motor response- obeys commands (6). --18:22 Ziyad Hagen R.N. 18:18 12/23/16. BP: 138/66. HR: 76. RR: 22. O2 saturation: 97%. Temp: 97.9 F. Pain level now 8/10. --18:22 Ziyad Hagen R.N. Weight: 141.9 kg stated. Height/Length: 66 inches Per Patient. BMI: 50.5. --18:20 Ziyad Hagen R.N. Medications Centrum Silver Oral, daily. --18:19 Jing Jones R.N. Calcium Citrate Oral. --18:19 Ziyad Hagen R.N. FLUoxetine HCl Oral (Capsule 20 mg) 1 capsule, daily. Furosemide Oral (Tablet 40 mg) 1 tablet, daily. Lisinopril Oral (Tablet 40 mg) 1 tablet, daily. Omeprazole Oral 20 mg, daily. RisperiDONE Oral (Tablet 2 mg) 1 tablet, at bedtime. Spiriva HandiHaler Inhalation 2.5 mcg. --18:19 Jing Jones R.N. Dicloxacillin Sodium Oral. Symbicort Inhalation. --18:19 Ziyad Hagen R.N. Potassium Chloride ER Oral (Capsule Extended Release 10 meq) 1 capsule, BID. --23:07 Jing Jones R.N. Metoprolol Tartrate Oral (Tablet 50 mg) 1 tablet, daily. --23:08 Jing Jones R.N. Calcitriol Oral (Capsule 0.25 mcg) 1 capsule, daily. --23:09 Jing Jones R.N. LORazepam Oral (Tablet 0.5 mg) 1 tablet, at bedtime. --23:11 Jing Jones R.N. The following entry was struck and corrected by Jing Jones R.N., 23:10 (12/23/16) Reason for correction - other(correction). <<[facility] ENTRY-- Lisinopril Oral. --18:19 Ziyad Hagen R.N. --END STRIKE>> The following entry was struck and corrected by Jing Jones R.N., 23:10 (12/23/16) Reason for correction - other(correction). <<[facility] ENTRY-- Furosemide Oral. --18:19 Ziyad Hagen R.N. --END STRIKE>> The following entry was struck and corrected by Jing Jones R.N., 23:09 (12/23/16) Reason for correction - other(correction). <<[facility] ENTRY-- RisperiDONE Oral. --18:19 Ziyad Hagen R.N. --END STRIKE>> The following entry was struck and corrected by Jing Jones R.N., 23:09 (12/23/16) Reason for correction - other(correction). <<[facility] ENTRY-- Spiriva HandiHaler Inhalation. --18:19 Ziyad Hagen R.N. --END STRIKE>> The following entry was struck by Jing Jones R.N., 23:08 (12/23/16) Reason - wrong value. <<[facility] ENTRY-- Metoprolol Succinate ER Oral. --18:19 Ziyad Hagen R.N. --END STRIKE>> The following entry was struck and corrected by Jing Jones R.N., 23:07 (12/23/16) Reason for correction - other(correction). <<[facility] ENTRY-- Omeprazole Oral. --18:19 Ziyad Hagen R.N. --END STRIKE>> The following entry was struck and corrected by Jing Jones R.N., 23:06 (12/23/16) Reason for correction - other(correction). <<[facility] ENTRY-- FLUoxetine HCl Oral. --18:19 Ziyad Hagen R.N. --END STRIKE>> The following entry was struck and corrected by Jing Jones R.N., 23:05 (12/23/16) Reason for correction - other(correction). <<[facility] ENTRY-- Centrum Silver Oral. --18:19 Ziyad Hagen R.N. --END STRIKE>>. Allergies Thorazine. Definite(Anaphylaxis) --18:19 Ziyad Hagen R.N. History Arrived by EMS. Historian: patient. Accompanied by family. ( one week weakness and abdominal pain today.). She has had abdominal pain. PAST MEDICAL HX: Immunizations: up-to-date. SOCIAL HX: Former smoker, end date 2009. History of drug use: marijuana. No alcohol use. No recent travel. She has had contact with a sick family member. SELF HARM ASSESSMENT: A self harm assessment was performed. The patient answered "no" to the question "Have you recently felt down, depressed, or hopeless?" and "Do you have thoughts of harming or killing yourself?". FALL RISK ASSESSMENT: Fall risk assessment completed. No fall risk identified. NUTRITIONAL RISK ASSESSMENT: The nutritional risk assessment revealed no deficiencies. FUNCTIONAL ASSESSMENT: Functional assessment: no impairments noted. LEARNING NEEDS ASSESSMENT: The learning needs assessment revealed no barriers. ABUSE ASSESSMENT: Abuse assessment: (yes) The patient was asked "Do you feel safe in your home?". SKIN INTEGRITY ASSESSMENT: Skin integrity risk assessment completed. No skin integrity risk identified. --18:22 Ziyad Hagen R.N. PROBLEMS: Cellulitis. Leukocytosis. Iv Drug Use. Osteoporosis. Arthritis. Hypertension. Hepatitis C. COPD - Chronic Obstructive Pulmonary Disease. Anxiety. Depression. --18:19 Ziyad Hagen R.N. ADDITIONAL SURGERIES: Appendectomy. Hysterectomy. --18:19 Ziyad Hagen R.N. Interventions ID and allergy band on patient. --18:22 Ziyad Hagen R.N. PHYSICAL ASSESSMENT To room via stretcher. GENERAL / NEURO / PSYCH: Alert. Oriented X 4. Appears in pain, anxious and in distress. RESPIRATORY: Mild respiratory distress. ( COPD hx on O2 at home). CVS: Normal sinus rhythm noted. Capillary refill less than 2 seconds. GI / : Abdominal distention. Abdominal tenderness. Bowel sounds within normal limits. SKIN: Skin is warm and dry. ( bilat leg weeping and swelling from a sugar scrub done with her pedicure. Was on antibiotics now they have finished and legs still weeping.). --18:26 Ziyad Hagen R.N. NURSING PROGRESS NOTES The initial plan of care for this patient includes an assessment with efforts to address patient positioning, appropriate ambient lighting and comfortable environmental temperature; impairment of the respiratory, gastrointestinal and genitourinary system. lunchroom monitor, pulse oximeter and NIBP monitor placed on patient. Patient gowned. Head of bed elevated 90 degrees. Reassurance given. Call light placed in reach. Side rails up x 2. Bed placed in lowest position. Brakes of bed on. --18:26 Ziyad Hagen R.N. 18:54 12/23/2016 Two (2) unsuccessful IV access attempts. --18:54 Claudine Cabrera R.N. 19:11 12/23/2016 Site #1 started via IV in the left antecubital space with an 20g angiocath, with aseptic technique and good blood return; one attempt. Blood drawn: rainbow set. Labeled in the presence of the patient and sent to the lab. Saline lock flushed with 10 mL saline. --19:19 Jing Jones R.N. 19:33 12/23/2016 Zofran (Ondansetron HCl) IVP 4 mg given over 2 minute(s) via site #1. Allergies verified. IV patency established. IV site checked: no pain, redness, or swelling. IV flushed thoroughly pre- and post-medication administration. IVP given by RN. --19:33 Jing Jones R.N. Two patient identifiers checked. Call light placed in reach. Side rails up x 2. Bed placed in lowest position. Brakes of bed on. --19:34 Jing Jones R.N. 19:15 07/08/17. BP: 126/67 taken on the right arm, while lying. HR: 75 (regular and normal rate). RR: 23 (regular and unlabored). O2 saturation: 92% on nasal cannula at 2 liters/minute. Temp: deferred. Pain level now: 8. Additional comments: abdomen. --19:34 Jing Jones R.N. Overall patient status is the same- she states feels the same. ( family at bedside pt medicated per MD orders, will continue to monitor). GI / : The patient reports abdominal pain located in the central area of the abdomen is still present and worsening and currently moderate in severity, constant, described as sharp and dull and associated with nausea. --19:35 Jing Jones R.N. EKG time: (0 PM). EKG was ordered, performed by a tech and shown to the ED physician. --19:47 Ania Schmidt Critical value relayed to ED by [employer] tech. Critical value received by Maicol ESCOBAR. D-dimer 11.12. Critical value read back. Verified lab result and patient ID. ED physician notifed of critical value. --19:55 Maicol Chavez R.N. 20:22 12/23/2016 Started bag #1 1000 mL IV Fluids IV NS (Saline); bolus of 500 mL over 30 minute(s) via site #1 via IV pump. Allergies verified and confirmed 5 rights. IV patency established. IV site checked: no pain, redness, or swelling. IV flushed thoroughly pre- and post-medication administration. --20:22 Jing Jones R.N. 20:23 12/23/2016 Started 1 gm of Ceftriaxone IVPB in bag #1 50 mL; over 20 minute(s) via site #1 via IV pump. Allergies verified and confirmed 5 rights. IV patency established. IV site checked: no pain, redness, or swelling. IV flushed thoroughly pre- and post-medication administration. --20:23 Jing Jones R.N. 20:27 12/23/2016 Dilaudid (HYDROmorphone HCl PF) IVP 0.5 mg given over 2 minute(s) via site #1. Allergies verified, confirmed 5 rights and sedative warning given to the patient. IV patency established. IV site checked: no pain, redness, or swelling. IV flushed thoroughly pre- and post-medication administration. IVP given by RN. --20:27 Jing Jones R.N. Patient transported to PA by stretcher with tech. (20:30). --20:30 Jing Jones R.N. 20:00 12/23/16. BP: 127/60 taken on the right arm, while sitting. HR: 77 (regular and normal rate). RR: 18 (regular and unlabored). O2 saturation: 95% on room air. Temp: deferred. Pain level now: 11/25. --20:31 Jing Jones R.N. 20:43 12/23/2016 Ceftriaxone IVPB Discontinued: completed. Total amount infused: 50 mL. IV patency established. IV site checked: no pain, redness, or swelling. IV flushed thoroughly. --20:58 Jing Jones R.N. 20:59 12/23/2016 Started bag #1 1000 mL IV Fluids IV NS (Saline); at 250 mL/hr over 3 hour(s) via site #1 via IV pump. Allergies verified and confirmed 5 rights. IV patency established. IV site checked: no pain, redness, or swelling. IV flushed thoroughly pre- and post-medication administration. --20:59 Jing Jones R.N. 20:59 12/23/2016 IV Fluids IV NS Discontinued: completed. Total amount infused: 500 mL. IV patency established. IV site checked: no pain, redness, or swelling. IV flushed thoroughly. --20:59 Jing Jones R.N. The patient is resting quietly. Overall patient status is improved- she states feels better. Two patient identifiers checked. Call light placed in reach. Side rails up x 2. Bed placed in lowest position. Brakes of bed on. --21:02 Jing Jones R.N. 20:45 12/23/16. BP: 124/44 taken on the right arm, while lying. HR: 80 (regular and normal rate). RR: 20 (regular and unlabored). O2 saturation: 93% on nasal cannula at 3 liters/minute. Temp: 97.8 F (oral). Pain level now: 11/25. --21:02 Jing Jones R.N. ( US in room). --21:56 Jing Jones R.N. 23:11 12/23/16. BP: 107/52. HR: 77. RR: 18. O2 saturation: 94% on nasal cannula at 3 liters/minute. Temp: deferred. Pain level now: 09/25. --23:13 Jing Jones R.N. Overall patient status is the same- she states feels the same. SKIN: Skin is warm and dry. --23:13 Jing Jones R.N. 23:14 12/23/2016 IV Fluids IV NS Discontinued: completed. Total amount infused: 500 mL. IV patency established. IV site checked: no pain, redness, or swelling. IV flushed thoroughly. --23:14 Jing Jones R.N. 23:14 12/23/2016 IV Saline Lock Drip IV Continued: upon admission at the rate of 0 mL/hr. 0 mL remaining bag #1. IV patency established. IV site checked: no pain, redness, or swelling. IV flushed thoroughly. --23:14 Jing Jones R.N. DISPOSITION / DISCHARGE Transported via stretcher by nurse with monitor and IV. Report was given to a nurse via a phone call. Report included patient's care, treatment, medications, reviewed medication reconcilliation, and condition (including any recent changes or anticipated changes). All questions were answered. Report was acknowledged and care was transferred. (Anitra SARGENT @ [phone]). --23:29 Jing Jones R.N. 23:20 12/23/2016 Started 500 mg of Flagyl (MetroNIDAZOLE in NaCl) IVPB in bag #1 100 mL; over 1 hour(s) via site #1 via IV pump. Allergies verified and confirmed 5 rights. IV patency established. IV site checked: no pain, redness, or swelling. IV flushed thoroughly pre- and post-medication administration. --23:29 Jing Jones R.N. 23:29 12/23/2016 Site #[address] upon admission; patent, no pain and no signs of infection or infiltration. Good blood return present. --23:29 Jing Jones R.N. 23:30 12/23/2016 Flagyl IVPB Continued: upon admission at the rate of 100 mL/hr. 75 mL remaining bag #1. IV patency established. IV site checked: no pain, redness, or swelling. IV flushed thoroughly. --23:30 Jing Jones R.N. Departure time: 2355. ( pt transported at 2355). --00:42 Jing Jones R.N. 23:40 12/23/16. BP: 113/52. HR: 71. RR: 20 (regular and unlabored). O2 saturation: 93% on nasal cannula at 3 liters/minute. Temp: 97.9 F (oral). Pain level now: 09/25. --00:42 Jing Jones R.N. Locked/Released at 12/24/2016 0:42 by Jing Jones R.N.
--- NOTE | 2016-12-23 20:20 | ED ORDER SUMMARY ---
..... Patient: GREGG KEARNEY OrderSheet [facility] VisitID: [id number] [address] [place] [address] 61y, F Registration Date/Time: 12/23/2016 ORDER SHEET Weight: 141.9 kg (stated) Allergies: Thorazine GENERAL ORDERS: Chest 2V Urgent (18:33 12/23/2016 PHutchinson DO) (Ack 18:47 LNations ER Tech1) (19:42 PHutchinson DO) (Cancelled: Other19:42 PHutchinson DO) Ebd Special Education Teacher (Continuous) (18:33 12/23/2016 PHutchinson DO) (Ack 18:45 LNations ER Tech1) (18:55 Tacho R.N.) UA-Culture if indicated Urgent (18:34 12/23/2016 PHutchinson DO) (Ack 18:46 LNations ER Tech1) (18:55 Tacho R.N.) Cardiac Panel Stat (18:34 12/23/2016 PHutchinson DO) (Ack 18:46 LNations ER Tech1) (19:19 CBradburn R.N.) BNP Urgent (18:34 12/23/2016 PHutchinson DO) (Ack 18:46 LNations ER Tech1) (19:19 CBradburn R.N.) D-Dimer Urgent (18:34 12/23/2016 PHutchinson DO) (Ack 18:46 LNations ER Tech1) (19:19 CBradburn R.N.) Amylase Urgent (18:34 12/23/2016 PHutchinson DO) (Ack 18:46 LNations ER Tech1) (19:19 CBradburn R.N.) PT with INR Urgent (18:34 12/23/2016 PHutchinson DO) (Ack 18:46 LNations ER Tech1) (19:19 CBradburn R.N.) TSH Urgent (18:34 12/23/2016 PHutchinson DO) (Ack 18:46 LNations ER Tech1) (19:19 CBradburn R.N.) Ethyl Alcohol Urgent (18:34 12/23/2016 PHutchinson DO) (Ack 18:46 LNations ER Tech1) (19:20 CBradburn R.N.) Urine Drug Screen Urgent (18:34 12/23/2016 PHutchinson DO) (Ack 18:46 LNations ER Tech1) (19:20 CBradburn R.N.) Lipase Urgent (18:34 12/23/2016 PHutchinson DO) (Ack 18:47 LNations ER Tech1) (19:20 CBradburn R.N.) PCT (Procalcitonin) Urgent (18:34 12/23/2016 PHutchinson DO) (Ack 18:47 LNations ER Tech1) (19:20 CBradburn R.N.) Pulse oximeter (18:34 [facility]2016 [facility] (Ack 18:45 LNations ER Tech1) (18:55 Tacho R.N.) EKG - ER Stat (18:34 12/23/2016 [facility] (Ack 18:46 LNations ER Tech1) (19:33 CBradburn R.N.) Vitals (18:34 12/23/2016 PHutchinson DO) (Ack 18:46 LNations ER Tech1) (19:33 CBradburn R.N.) Oxygen (2 L/min) (NC) (18:34 12/23/2016 utchinson DO) (Ack 18:46 LNations ER Tech1) (18:55 Tacho R.N.) Panda Catheter (18:35 12/23/2016 utchinson DO) (Ack 18:47 LNations ER Tech1) CT Abd/Pel w Cont (No) (N/A) Urgent (18:35 12/23/2016 [facility] (Ack 18:47 LNations ER Tech1) (19:42 utchinson DO) (Cancelled: Other19:42 utchinson DO) Dress Wounds (dress weeping area LLE) (18:51 12/23/2016 [facility] (22:37 CBradburn R.N.) Call (Place call to): (Dr Alvarenga) (19:40 12/23/2016 [facility] (Ack 19:45 Yanick ER Driver Retraining Instructor) (21:27 CBradburn R.N.) Chest 1V Urgent (19:42 12/23/2016 [facility] (Ack 19:45 CHagerty ER Driver Retraining Instructor) (19:59 Kathryn) CT Abd/Pel wo Cont (pancreatitis) Urgent (20:24 12/23/2016 PHutchinson DO) (20:27 CBradburn R.N.) (Ack 20:28 CHagerty ER Driver Retraining Instructor) ABG (G) Urgent (20:26 12/23/2016 PHutchinson DO) (Ack 20:28 CHagerty ER Driver Retraining Instructor) (21:03 CBradburn R.N.) Lactate, Serum Urgent (20:26 12/23/2016 PHutchinson DO) (Ack 20:28 CHagerty ER Driver Retraining Instructor) (20:57 CBradburn R.N.) US Abdomen Limited (Yes) Urgent (21:44 12/23/2016 utchinson DO) (Ack 21:48 CHagerty ER Driver Retraining Instructor) (21:56 CBradburn R.N.) US Venous Bilat (elevated d-dimer) Urgent (21:49 12/23/2016 PHutchinson DO) (Ack 21:50 CHagerty ER Driver Retraining Instructor) (21:56 CBradburn R.N.) MEDICATION ORDERS: IV FLUIDS: Zofran IV 4 mg (NOW) (18:34 12/23/2016 PHohchinson DO) (19:33 CBradburn R.N.) IV Saline Lock (18:34 12/23/2016 [facility] (19:19 CBradburn R.N.) Ceftriaxone IV 1 gm/50mL (NOW) (19:39 12/23/2016 [facility] (Ack 20:15 CBradburn R.N.) (20:23 CBradburn R.N.) IV NS : initial bolus 500 mL (1000 mL/hr), then 250 mL/hr for X3 (NOW) (19:50 12/23/2016 PHohchinson DO) (Ack 20:15 CBradburn R.N.) (20:22 CBradburn R.N.) Dilaudid IV 0.5 mg (HIGH ALERT MEDICATION, NOW) (20:15 12/23/2016 [facility] (Ack 20:23 CBradburn R.N.) (20:27 CBradburn R.N.) Flagyl IV 500 mg/100mL (NOW) (21:13 12/23/2016 Melva ERIC) (Ack 23:00 CBradburn R.N.) (23:29 CBradburn R.N.) ORDER SHEET NOTES: [Electronically signed by Sam Leroy DO (00:14 12/24/2016)] [Electronically signed by Jing Jones R.N. (00:42 12/24/2016)] [Electronically locked/signed by Jing Jones R.N. (00:42 12/24/2016)]
--- NOTE | 2016-12-23 20:20 | ED ORDER SUMMARY ---
..... Patient: GREGG KEARNEY OrderSheet [facility] VisitID: [id number] [address] [place] [address] 61y, F Registration Date/Time: 12/23/2016 ORDER SHEET Weight: 141.9 kg (stated) Allergies: Thorazine GENERAL ORDERS: Chest 2V Urgent (18:33 12/23/2016 PHutchinson DO) (Ack 18:47 LNations ER Tech1) (19:42 PHutchinson DO) (Cancelled: Other19:42 PHutchinson DO) Pediatric Physical Therapist (Continuous) (18:33 12/23/2016 PHutchinson DO) (Ack 18:45 LNations ER Tech1) (18:55 Tacho R.N.) UA-Culture if indicated Urgent (18:34 12/23/2016 PHutchinson DO) (Ack 18:46 LNations ER Tech1) (18:55 Tacho R.N.) Cardiac Panel Stat (18:34 12/23/2016 PHutchinson DO) (Ack 18:46 LNations ER Tech1) (19:19 CBradburn R.N.) BNP Urgent (18:34 12/23/2016 PHutchinson DO) (Ack 18:46 LNations ER Tech1) (19:19 CBradburn R.N.) D-Dimer Urgent (18:34 12/23/2016 PHutchinson DO) (Ack 18:46 LNations ER Tech1) (19:19 CBradburn R.N.) Amylase Urgent (18:34 12/23/2016 PHutchinson DO) (Ack 18:46 LNations ER Tech1) (19:19 CBradburn R.N.) PT with INR Urgent (18:34 12/23/2016 PHutchinson DO) (Ack 18:46 LNations ER Tech1) (19:19 CBradburn R.N.) TSH Urgent (18:34 12/23/2016 PHutchinson DO) (Ack 18:46 LNations ER Tech1) (19:19 CBradburn R.N.) Ethyl Alcohol Urgent (18:34 12/23/2016 PHutchinson DO) (Ack 18:46 LNations ER Tech1) (19:20 CBradburn R.N.) Urine Drug Screen Urgent (18:34 12/23/2016 PHutchinson DO) (Ack 18:46 LNations ER Tech1) (19:20 CBradburn R.N.) Lipase Urgent (18:34 12/23/2016 PHutchinson DO) (Ack 18:47 LNations ER Tech1) (19:20 CBradburn R.N.) PCT (Procalcitonin) Urgent (18:34 12/23/2016 PHutchinson DO) (Ack 18:47 LNations ER Tech1) (19:20 CBradburn R.N.) Pulse oximeter (18:34 [facility]2016 [facility] (Ack 18:45 LNations ER Tech1) (18:55 Tacho R.N.) EKG - ER Stat (18:34 12/23/2016 [facility] (Ack 18:46 LNations ER Tech1) (19:33 CBradburn R.N.) Vitals (18:34 12/23/2016 PHutchinson DO) (Ack 18:46 LNations ER Tech1) (19:33 CBradburn R.N.) Oxygen (2 L/min) (NC) (18:34 12/23/2016 utchinson DO) (Ack 18:46 LNations ER Tech1) (18:55 Tacho R.N.) Panda Catheter (18:35 12/23/2016 utchinson DO) (Ack 18:47 LNations ER Tech1) CT Abd/Pel w Cont (No) (N/A) Urgent (18:35 12/23/2016 [facility] (Ack 18:47 LNations ER Tech1) (19:42 utchinson DO) (Cancelled: Other19:42 utchinson DO) Dress Wounds (dress weeping area LLE) (18:51 12/23/2016 [facility] (22:37 CBradburn R.N.) Call (Place call to): (Dr Alvarenga) (19:40 12/23/2016 [facility] (Ack 19:45 Yanick ER Parachute Supervisor) (21:27 CBradburn R.N.) Chest 1V Urgent (19:42 12/23/2016 [facility] (Ack 19:45 CHagerty ER Parachute Supervisor) (19:59 Kathryn) CT Abd/Pel wo Cont (pancreatitis) Urgent (20:24 12/23/2016 PHutchinson DO) (20:27 CBradburn R.N.) (Ack 20:28 CHagerty ER Parachute Supervisor) ABG (G) Urgent (20:26 12/23/2016 PHutchinson DO) (Ack 20:28 CHagerty ER Parachute Supervisor) (21:03 CBradburn R.N.) Lactate, Serum Urgent (20:26 12/23/2016 PHutchinson DO) (Ack 20:28 CHagerty ER Parachute Supervisor) (20:57 CBradburn R.N.) US Abdomen Limited (Yes) Urgent (21:44 12/23/2016 utchinson DO) (Ack 21:48 CHagerty ER Parachute Supervisor) (21:56 CBradburn R.N.) US Venous Bilat (elevated d-dimer) Urgent (21:49 12/23/2016 PHutchinson DO) (Ack 21:50 CHagerty ER Parachute Supervisor) (21:56 CBradburn R.N.) MEDICATION ORDERS: IV FLUIDS: Zofran IV 4 mg (NOW) (18:34 12/23/2016 PHflchinson DO) (19:33 CBradburn R.N.) IV Saline Lock (18:34 [facility]/23/2016 [facility] (19:19 CBradburn R.N.) Ceftriaxone IV 1 gm/50mL (NOW) (19:39 12/23/2016 [facility] (Ack 20:15 CBradburn R.N.) (20:23 CBradburn R.N.) IV NS : initial bolus 500 mL (1000 mL/hr), then 250 mL/hr for X3 (NOW) (19:50 12/23/2016 PHflchinson DO) (Ack 20:15 CBradburn R.N.) (20:22 CBradburn R.N.) Dilaudid IV 0.5 mg (HIGH ALERT MEDICATION, NOW) (20:15 12/23/2016 [facility] (Ack 20:23 CBradburn R.N.) (20:27 CBradburn R.N.) Flagyl IV 500 mg/100mL (NOW) (21:13 12/23/2016 Melva ERIC) (Ack 23:00 CBradburn R.N.) (23:29 CBradburn R.N.) ORDER SHEET NOTES: [Electronically signed by Sam Leroy DO (00:14 12/24/2016)] [Electronically signed by Jing Jones R.N. (00:42 12/24/2016)] [Electronically locked/signed by Jing Jones R.N. (00:42 12/24/2016)]
--- NOTE | 2016-12-23 20:20 | ED CLINICAL REPORT ---
Clinical Report - Physicians/Mid Levels [facility] [address] [place] [address] 12/23/2016 18:13 Patient: GREGG KEARNEY Time Seen: 18:19. Arrived- By ambulance. Historian- patient and EMS personnel. HISTORY OF PRESENT ILLNESS Chief Complaint: ABDOMINAL PAIN and WEAKNESS. This started today and is still present. It was gradual in onset and has been waxing/waning. At its maximum, severity described as severe. When seen in the E.D., severity described as severe. Modifying factors- worsened by walking. Relieved by rest. No weight loss. She has had fatigue and muscle aches. She has had new onset of generalized weakness. Similar symptoms previously: Recent medical care: Not recently seen/assessed. REVIEW OF SYSTEMS The patient has had nasal congestion, a subjective low grade fever, moderate, constant abdominal pain. The pain is described as generalized and located in the upper abdomen, central area of the abdomen and lower abdomen and nausea. No sore throat, vomiting, diarrhea, black stools or bloody stools. No headache. The patient has had a cough. It has been similar to previous symptoms. She has had difficulty with ambulation. All systems otherwise negative, except as recorded above. PAST HISTORY See nurses notes. PCP: Vickey PROBLEMS: Leukocytosis. Iv Drug Use. Osteoporosis. Arthritis. Hypertension. Hepatitis C. COPD - Chronic Obstructive Pulmonary Disease. Anxiety. Depression. Cellulitis of lower extremities Venous insufficiency of lower extremities Morbid Obesity. SURGERIES: Appendectomy. Hysterectomy Additional History from Old Records: MEDICAL/SURGICAL HISTORY: Past medical history is remarkable for longstanding COPD and heavy smoking history. She also has had hypertension, problems with osteoarthritis and osteoporosis. She has had some problems with depression and bipolar disorder. She has a remote history of skull fractures and pelvic fractures from falls from horses when she was in her 20s and early 30s. History of hepatitis C that was successfully treated with antiviral therapy. She also has a remote history of IV drug abuse. Past surgical history is remarkable for childbirth x2. She is also status post DaVinci hysterectomy and removal of large benign ovarian tumor and appendectomy done a year or 2 ago at [facility]. She has had a colonoscopy done in 05/[address] Robertson which was normal. Medications: Dicloxacillin Sodium Oral. FLUoxetine HCl Oral. Furosemide Oral. Lisinopril Oral. Metoprolol Succinate ER Oral. Omeprazole Oral. RisperiDONE Oral. Spiriva HandiHaler Inhalation. Symbicort Inhalation. Calcium Citrate Oral. Centrum Silver Oral. Allergies: Thorazine. Definite(Anaphylaxis). SOCIAL HISTORY Smoker- current status unknown. History of drug use: marijuana. No alcohol use. Is a local resident. FAMILY HISTORY Parents: 1. Father, living, 96, healthy, 2. Mother, living, 94, healthy Siblings: 1. Male, Blaine, living, 65, healthy 2. Male, Elroy, living, 61, healthy Children: 1. Male, Te, living, disability secondary to motor vehicle accident 2. Male, Cirilo, living, healthy Other significant family history: None. ADDITIONAL NOTES The nursing notes have been reviewed. PHYSICAL EXAM Vital Signs: 12/23/2016 18:18 BP: 138/66. HR: 76. RR: 22. O2 saturation: 97%. Temp: 97.9 F. Appearance: Patient in moderate distress. Eyes: No scleral icterus or pale conjunctivae. ENT: Dry mucous membranes present. No pharyngeal erythema or tonsillar exudate. Neck: Normal inspection. Neck supple. No meningeal signs. CVS: Normal heart rate and rhythm. Heart sounds normal. Pulses normal. Respiratory: No respiratory distress. Breath sounds normal. No rales or rhonchi. Abdomen: No visible injury. Soft. Moderate tenderness diffusely and in the upper abdomen and epigastric area. No López's sign present. No mass. Severely obese. Back: No CVA tenderness. : No vaginal bleeding. Skin: No cyanosis. Moderate, erythematous, weeping skin rash located on the genitalia (perineal yeast). No petechial or vesicular skin rash. No pallor. Extremities: Right leg: mild tenderness and swelling located in the upper, mid and lower leg. Left leg: mild erythema and moderate tenderness and swelling located in the posterior aspect of mid and lower leg. (weeping abraided area). Neuro: Oriented X 3. No motor deficit. No sensory deficit. LABS, X-RAYS, AND EKG EKG: EKG time: (19:30). Normal sinus rhythm. Rate: 75. Normal P waves. Normal ROSENDO. Normal axis. Normal ST and T waves. The study has been interpreted contemporaneously by me. The EKG appears to be a good tracing. Rhythm Strip #1: Normal sinus rhythm. Regular rhythm. Narrow QRS complexes. No ectopy. Chest X-ray: No acute disease. Views: AP (portable). Technique: poor inspiration, under penetrated. The X-rays were interpreted contemporaneously by me. Bedside Abdominal Sonogram: Gallstones present. No dilated common duct, common duct stones or gallbladder wall thickening. Indication for study: abdominal pain. The exam was performed by a legal technician. RUQ (Morison's pouch) views were obtained The study was interpreted by the radiologist. Lower Extremity Sonography: Negative exam. Negative study. nO DVT Bilaterally. Indication for study: suspected deep venous thrombosis in the right and left lower extremity (elevated ddimer). The exam was performed by a legal technician. The study was interpreted by the radiologist. Laboratory Tests: UA-Culture if indicated: (PAUL: 12/23/2016 18:45) ( MsgRcvd 12/23/2016 19:25) Final results Test Result Flag Units (Reference) URINE COLOR YELLOW URINE APPEARANCE CLEAR URINE GLUCOSE NEGATIVE (NEGATIVE) URINE BILIRUBIN NEGATIVE (NEGATIVE) URINE KETONE NEGATIVE (NEGATIVE) URINE SPECIFIC GRAVITY 1.015 (1.010-1.030) URINE PH 6.0 (5.0-8.0) URINE PROTEIN 1+ (NEGATIVE) URINE UROBILINOGEN 0.2 EU/dL (0.2-1.0) URINE NITRITE NEGATIVE (NEGATIVE) URINE BLOOD TRACE-LYSED (NEGATIVE) URINE LEUK ESTERASE NEGATIVE (NEGATIVE) URINE RBC RARE rbc/hpf (0-1) URINE WBC 3-5 wbc/hpf (0-1) URINE EPITHELIAL CELLS 1-3 EPI/hpf (0-5) URINE BACTERIA MODERATE (2+ TO 3+) (NONE SEEN) URINE COMMENT CULTURE INDICATED 1-3 HYALINE CAST PER LPF.URINE CULTURES ARE SET-UP BASED ON THE FOLLOWING CRITERIA:POSITIVE NITRITEPOSITIVE LEUKOCYTE ESTERASEGREATER THAN 10 WHITE BLOOD CELLSMODERATE (2+) OR GREATER BACTERIA CBC w Diff: (PAUL: 12/23/2016 19:11) ( MsgRcvd 12/23/2016 19:37) Final results Test Result Flag Units (Reference) WHITE BLOOD COUNT 20.3 H K/uL (4.5-11.5) RED BLOOD COUNT 3.32 L M/uL (4.00-5.20) HEMOGLOBIN 10.1 L gm/dL (12.0-16.0) HEMATOCRIT 30.7 L % (36.0-46.0) MEAN CELL VOLUME 92 fL (80-100) MEAN CORPUSCULAR HGB 31 pg (26-34) MEAN CORPUSCULAR HGB CONC 33 g/dL (31-37) RED CELL DISTRIBUTION WIDTH 15.7 H % (11.6-14.8) PLATELET COUNT 306 K/uL (150-400) NEUTROPHIL % 91.9 H % (50-75) LYMPH % 2.2 L % (25-40) MONO % 4.0 % (3-14) EOSINOPHIL % 0.3 % (0-4) BASOPHIL % 1.6 % (0-2) PT with INR: (PAUL: 12/23/2016 19:11) ( MsgRcvd 12/23/2016 19:55) Final results Test Result Flag Units (Reference) INR 1.1 (0.8-1.2) Low Intensity Therapy: INR 1.5-2.0 PT range 18.5-23.1Mod.Intensity Therapy: INR 2.0-3.0 PT range 23.1-31.5High Intensity Therapy: INR 2.5-3.5 PT range 27.4-35.5High Intensity Therapy 2: INR 3.0-4.0 PT range 31.5-39.3 D-DIMER QUANTITATIVE 11.12 *H ug/mLFEU (0.27-0.52) CRITICAL RESULTS CALLEDCalled to WALDO SARGENT,ER 12/23/161953Were 2 patient identifiers used? YESWas the result read back? YESThe primary value of this quantitative assay relates toits negative predictive value (i.e. exclusion) of pulmonaryembolism/deep vein thrombosis/DIC.Elevated levels of d-dimer may also occur with:, age, cancer, inflammation, liver disease,post-op, infection, hematoma, coronary disease, peripheralarteriopathy, bleeding disorders and thrombolytic treatment.Results should be correlated with other clinical andradiological data.Testing Methodology: Latex Immunoassay Lactate, Serum: (PAUL: 12/23/2016 20:53) ( [facility] 12/23/2016 21:26) Final results Test Result Flag Units (Reference) LACTIC ACID 0.5 mmol/L (0.4-2.0) Urine Drug Screen: (PAUL: 12/23/2016 18:45) ( [facility] 12/23/2016 20:51) Final results Test Result Flag Units (Reference) AMPHETAMINE/METHAMPHETAMINE NEGATIVE (NEGATIVE) BARBITURATE NEGATIVE (NEGATIVE) BENZODIAZEPINE NEGATIVE (NEGATIVE) CANNABINOID POSITIVE H (NEGATIVE) QNS. SPECIMEN IS NOT ENOUGH TO FURTHER TESTING. COCAINE NEGATIVE (NEGATIVE) ECSTASY NEGATIVE (NEGATIVE) METHADONE NEGATIVE (NEGATIVE) OPIATE NEGATIVE (NEGATIVE) The urine drug screen is a qualitative screening test fordrug overdose and abuse. All screen results should beconsidered as presumptive.Drugs screened for are as follows:BenzodiazepinesCocaineAmphetamines/MetamphetaminesTHC (Tetrahydrocannabinol)OpiatesBarbituratesEcstasyMethadonePositive results are unconfirmed. For confirmation, notifythe lab for the specimen to be sent to the reference lab.All confirmations must be performed by a differentmethodology.The ingestion of natural herbal and plant productscontaining Ephedra/Ephedra metabolites can produce in urineone or more substances capable of cross reacting withamphetamine/methamphetamine immunoassays. These testsprovide a preliminary result only. A more specificalternative chemical method must be used to obtain aconfirmed analytical result. BNP: (PAUL: 12/23/2016 19:11) ( [facility] 12/23/2016 19:57) Final results Test Result Flag Units (Reference) B-TYPE NATRIURETIC PEPTIDE 59.3 pg/ml (5-100) [id number]: (PAUL: 12/23/2016 19:11) ( [facility] 12/23/2016 20:05) Final results Test Result Flag Units (Reference) PROCALCITONIN <0.5 ng/mL (0-0.5) PCT Concentration: Interpretation : Risk/option for action PCT <=0.5 ng/mL : Systemic : Low risk forinfection(sepsis): progression to severeis not likely. : systemic infection.Local bacterial : CAUTION-PCT levelsinfection is : below 0.5 ng/mL do notpossible. : exclude an infection,because localizedinfections (withoutsystemic signs) may beassociated with suchlow levels. If PCT ismeasured very earlyafter a bacterialchallenge (usually <6hours), these valuesmay still be low. Inthis case PCT shouldbe re-assessed 6-24hours later. PCT >0.5 and : Systemic infection: Moderate risk for<= 2 ng/mL : (sepsis) is : progression to severepossible, but : systemic infection.other conditions : The patient should beare known to : closely monitoredelevate PCT. : both clinically andby re-assessing PCTwithin 6-24 hours. PCT > 2 ng/mL : Systemic infection: High risk for(sepsis) is likely: progression to severeunless other : systemic infection.causes are known. : PCT >= 10 ng/mL : Important systemic: High likelihood ofinflammatory : severe sepsis orresponse, almost : septic shock.exclusively due to:severe bacterial :sepsis or septic :shock. : CHEM 13 PANEL: (PAUL: 12/23/2016 19:11) ( MsgRcvd 12/23/2016 20:04) Final results Test Result Flag Units (Reference) GLUCOSE 107 mg/dL (70-110) BUN 54 H mg/dL (7-18) CREATININE 2.9 H mg/dL (0.6-1.3) Estimated GFR 17.42 mL/min Estimated GFR- 21.11 mL/min Note: Persistent reduction over 3 months in eGFR<60 mL/min/1.73 m2 defines CKD. Patients with eGFR values>=60 mL/min/1.73 m2 may also have CKD if evidence ofpersistent proteinuria. Additional information may be foundat www.kidney.org. SODIUM 133 L mmol/L (136-145) POTASSIUM 5.5 H mmol/L (3.5-5.1) CHLORIDE 102 mmol/L (98-107) CARBON DIOXIDE 17 L mmol/L (21-32) CALCIUM 8.7 mg/dL (8.5-10.1) TOTAL PROTEIN 7.1 g/dL (6.4-8.2) ALBUMIN 3.4 g/dL (3.3-5.0) BILIRUBIN, TOTAL 0.3 mg/dL (0.0-1.0) ALKALINE PHOSPHATASE 63 U/L (46-116) AST (SGOT) 16 U/L (15-37) ALT (SGPT) 19 U/L (12-78) CPK 65 U/L (24-260) MAGNESIUM 2.3 mg/dL (1.8-2.4) TROPONIN I <0.05 L ng/mL (0.00-1.5) TROPONIN REFERENCE RANGE:<0.1 NEGATIVE0.1-1.5 INDETERMINANT>1.5 POSITIVE ETHYL ALCOHOL <3 L mg/dL (3-10) THYROID STIMULATING HORMONE 0.717 uIU/mL (0.30-3.74) LIPASE 50580 H U/L (73-393) AMYLASE 1822 H U/L (25-115) ABG: (PAUL: 12/23/2016 20:26) ( MsgRcvd 12/23/2016 21:06) Final results Test Result Flag Units (Reference) FIO2 32 % (20-101) ABG MODE OF DELIVERY NC MODIFIED FRANNIE TEST POSITIVE? YES LITERS PER MIN. 3 L/MIN (0-20) ABG PATIENT RESP RATE 22 /MIN ARTERIAL BLOOD GAS SITE RR ARTERIAL BLOOD GAS pH 7.14 *L (7.35-7.45) ABG PCO2 43.4 mmHg (35-45) ABG PO2 72.6 mmHg (60.0-80.0) ABG BASE EXCESS -13.3 *L mmol/L (-6.0--6.0) ABG HCO3 14.6 *L mmol/L (20.0-26.0) ABG TCO2 16.0 L mmol/L (24.0-30.0) ABG BlLxC3a 106.2 H mmHg (7.0-14.0) *NOTE: Normal rangeis based on aFIO2 of 21% ABG SAT O2 91.8 L % (95.1-100.0) ABG TOTAL HEMOGLOBIN 10.0 L g/dL (12.0-16.0) ABG O2 HEMOGLOBIN 90.2 L % (95.0-100.0) ABG CARBOXYHEMOGLOBIN 1.6 H % (0.5-1.5) ABG METHEMOGLOBIN 0.1 L % (0.4-1.5) ABG RHEMOGLOBIN 8.1 % . (Cr 1.0, BUN 16 on 09/04/2016). Microbiology: Urine culture ordered. Pulse Oximetry: 12/23/2016 18:18 O2 saturation: 97%. (FIO2 - room air). Interpretation: normal. PROGRESS AND PROCEDURES Course of Care: Normal Saline 1 liter IVPB given. Zofran 4 mg IVP given. Ceftriaxone 1gm IVP given. Dilaudid 0.5 mg IVP given. Flagyl 500mg IVPB given. Physical exam findings are improved. Symptoms better. 12/23/2016 23:11 BP: 107/52. HR: 77. RR: 18. O2 saturation: 94%. Pain level now: 09/25. 12/23/2016 20:45 BP: 124/44. HR: 80. RR: 20. O2 saturation: 93%. Temp: 97.8 F. Pain level now: 10. Critical care performed (70 minutes). Time is exclusive of separately billable procedures. Time includes: direct patient care, patient reassessment, coordination of patient care, interpretation of data (laboratory data, pulse oximetry, arterial blood gases and chest xrays), review of patient's medical records, medical consultation, family consultation regarding treatment decisions and documentation of patient care. Procedures excluded from critical care time: electrocardiography. Discussed case with hospitalist, (Lyle call placed 19:45 call returned 20:20 - requests additional tests be performed in the ED before accepting pt - CT w/o, US, serum lactate, ABG). Reviewed test results. Agreed upon treatment plan. Health care provider will see patient in ED. Patient/family counseled. Old ED and inpatient records reviewed. Transition orders written. Disposition: Admitted to the Critical Care Unit. Condition: guarded and improved. CLINICAL IMPRESSION Acute generalized weakness. Moderate dehydration. Acute idiopathic pancreatitis. Gallbladder disease with multiple gallstones. No gallstone in the cystic or bile duct, obstruction or cholangitis. Mild acute renal failure. Chronic substance abuse- tobacco (cigarettes), marijuana with anxiety. Moderate leukocytosis. No lymphocytosis. Acute urinary tract infection with cystitis. Yeast dermatitis lower abdomen Chronic bilateral lower extremity venous insufficiency with worsening. (Electronically signed by Sam Leroy DO 12/24/2016 0:14)
--- NOTE | 2016-12-23 21:16 | DIAGNOSTIC IMAGING REPORT ---
PROCEDURE: CT ABDOMEN/PELVIS W/O CONTRAST INDICATION: ABDOMINAL PAIN TECHNIQUE: Noncontrast axial images were obtained of the entire abdomen and pelvis with sagittal and coronal reformations. COMPARISON: CT abdomen/pelvis 04/13/2009. FINDINGS: ABDOMEN: Bibasilar atelectasis. Mild cardiomegaly. Small calcified gallstones. No evidence of biliary distention. Mild inflammatory changes around the pancreas with a small amount of free fluid in the left anterior pararenal space and left pericolic gutter. Liver, spleen, adrenal glands and kidneys are normal. No renal calculi or hydronephrosis. Mild atherosclerosis of the aorta. Small ascites around the liver. Mild diverticulosis of the ascending colon. PELVIS: Appendectomy. Mild to moderate sigmoid diverticulosis. Hysterectomy. Small amount of free fluid the pelvis. Normal bladder. 10 cm wide based midline fat-containing ventral wall hernia. Severe L2-3 degenerative changes. IMPRESSION: 1. Cholelithiasis 2. Pancreatitis, possibly secondary to cholelithiasis 3. Small ascites 4. Diverticulosis 5. Appendectomy and hysterectomy 6. Results discussed with Dr. Leroy All CT scans at this facility use dose modulation, iterative reconstruction, and/or weight-based dosing when appropriate to reduce radiation dose to as low as reasonably achievable.
--- NOTE | 2016-12-23 21:54 | Progress Note ---
Subjective General Admission History and Physical Examination Patient Name: Massiel Larson Admission Date: September 01, 2016 Primary Care Provider: Rey Hurd M.D. Attending Physician: Juve Juarez M.D. Admitting Physician: Te Alvarenga M.D. Code Status: Full Code Room: 306 Admission Status: Inpatient, CCU SUBJECTIVE Historian: Patient Reliability: Fair Chief Complaint: Abdominal pain History of Present Illness: The patient is a 61-year-old morbidly obese white female with a significant past medical history of venous stasis dermatitis lower extremities, COPD, hypertension, osteoarthritis, depression, bipolar disorder, hepatitis C, who presented to [facility] emergency department on the day of admission secondary to complaints of abdominal pain and weakness.. [facility] ER evaluation was consistent with acute pancreatitis, cholelithiasis, metabolic acidosis. Secondary to the above, the patient was admitted by Te Alvarenga M.D. for further evaluation and treatment. The patient states the history of present was began on the day of admission when she developed epigastric abdominal discomfort. This was associated with nausea but no vomiting. She knew of no aggravating or relieving factors. Secondary to persistent abdominal pain the patient presented to [facility] emergency department for further evaluation and treatment. [facility] ER evaluation showed the patient to have vital signs of blood pressure 138/66, pulse 76, respirations 22, temperature 97.9 Fahrenheit, O2 sat 97%. Physical exam showed epigastric discomfort with palpation. Laboratory evaluation showed elevation amylase and lipase with CT scan findings consistent with pancreatitis. No signs of significant pancreatic necrosis. CT also showed gallstones but no signs of cholecystitis. Abdominal ultrasound was consistent with cholelithiasis without cholecystitis. UA was suggestive of UTI. Pulmonary infiltrate noted with no new pulmonary symptomatology. Secondary to the above, the patient was in with a diagnosis of acute pancreatitis probable gallstone pancreatitis, metabolic acidosis, UTI, and pulmonary infiltrate for further evaluation and treatment. PAST MEDICAL HISTORY Illnesses: 1. Hypertension 2. COPD 3. Osteoarthritis 4. Osteoporosis 5. Depression 6. Bipolar disorder 7. History of hepatitis C status post treatment-JANKI 8. Morbid obesity Allergies: 1. Thorazine Medications: 1. Albuterol neb 2.5 mg every 6 hours when necessary shortness of breath 2. Symbicort 1 inhalation twice a day 3. Calcitriol 0.25 g 1 by mouth daily 4. Fluoxetine 20 mg by mouth daily 5. Lisinopril 40 mg by mouth daily 6. Centrum Silver 1 by mouth daily 7. Prilosec 20 mg by mouth daily 8. Risperdal 2 mg by mouth daily at bedtime 9. Spiriva one inhalation daily 10. Lasix 40 mg 1 by mouth daily 11. KCl 10 mEq by mouth twice a day 12. Lopressor 50 mg by mouth daily 13. Lorazepam 0.5 mg by mouth daily at bedtime Surgery: 1. Hysterectomy 2. Removal of benign ovarian tumor 3. Appendectomy 4. Colonoscopy 2010 Injuries: 1. No significant Hospitalizations: 1. For above surgery and medical problems FAMILY HISTORY Parents: 1. Father, living, 96, healthy, 2. Mother, living, 94, healthy Siblings: 1. Male, Blaine, living, 65, healthy 2. Male, Elroy, living, 61, healthy Children: 1. Male, Te, living, disability secondary to motor vehicle accident 2. Male, Cirilo, 40, living, healthy Other significant family history: None SOCIAL HISTORY 1. Marital Status: 2. Mandaen: None 3. Education: 10th grade 4. 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 Occupational health exposures: None 6. Residence: Patient currently lives with her son HABITS 1. Tobacco: Former smoker stopped smoking 2007, 130 pack years pack years 2. Drugs: Marijuana 3. Alcohol: Rare usage 4. Caffeine: 5 cups coffee per day HEALTH SUPERVISION Item/Test 1. Vision screen: Unknown 2. Cholesterol Profile: Unknown 3. PSA: Not applicable 4. EMILIE: Not applicable 5. FOBT: Unknown 6. Blood Glucose: 2016 7. Colonoscopy: 2003 8. History and physical exam: Unknown 9. Audiogram: Unknown 10. Mammogram: 2014 11. Pap/pelvic exam: No recent, status post hysterectomy IMMUNIZATIONS: 1. Pneumococcal: 2015 2. Influenza: 2016 3. Tetanus: Unknown 4. Shingles vaccine: 2016 ADVANCED DIRECTIVES: 1. Living well: No 2. POLST: No 3. CODE STATUS: FULL CODE 4. Durable [employer] Member Health care: No 5. Donor card: No REVIEW OF SYSTEMS Remarkable for those things stated in the history of present illness and past medical history. Seventeen point review of system completed with the following notable findings: General: Abdominal pain, weakness Skin: NA Ears: NA Lungs: Shortness of breath, asthma/COPD Cardiovascular: Ankle edema, pain with ambulation, shortness of breath with exertion, shortness of breath when lying flat, chest tightness Genitourinary: Poor urinary stream Gastrointestinal: Abdominal pain Musculoskeletal: Joint stiffness, joint pain, backache Neurological: Tremors, headaches Psychological: Difficulty sleeping, anxiety Physical Exam Vital Signs / I&Os Blood pressure: 138/66 mmHg Heart rate: 76/minute Respiratory: 22/minute Temperature: 97.9 Fahrenheit orally Pulse oximetry: 97% room air General Appearance Alert, Oriented X3, Cooperative, Mild distress HEENT Atraumatic, PERRLA, EOMI, Moist mucous membranes Lungs decreased air movement bilaterally. Minimal expiratory wheezes. Scattered rhonchi. Neck Supple, No JVD Cardiovascular Regular rate and rhythm, Normal S1 and S2, No murmurs, gallops, rubs Abdomen Normal bowel sounds, Epigastric tenderness. Pendulous abdomen limiting exam Extremities No cyanosis, No clubbing, bilateral lower extremity edema, excoriation posterior left lower leg Neurological Cranial nerves intact, Strength 5/5 x4 ext's, No lateralizing signs Psych/Mental Status Mental status normal, Mood normal LAB Results Laboratory Tests 12/23 Blood Gas Sample Site RR Total CO2 (24.0 - 30.0 mmol/L) 16.0 ABG pH (7.35 - 7.45) 7.14 ABG pCO2 at Pt Temp (35 - 45 mmHg) 43.4 ABG pO2 at Pt Temp (60.0 - 80.0 mmHg) 72.6 ABG HCO3 (20.0 - 26.0 mmol/L) 14.6 ABG O2 Sat Calc/Justin (95.1 - 100.0 %) 91.8 ABG Base Excess (-6.0 - -6.0 mmol/L) -13.3 ABG Reduced Hgb (%) 8.1 ABG Carboxyhemoglobin (0.5 - 1.5 %) 1.6 ABG Methemoglobin (0.4 - 1.5 %) 0.1 Rick Test YES Other Total Hgb (12.0 - 16.0 g/dL) 10.0 A-a O2 Gradient (7.0 - 14.0 mmHg) 106.2 Hgb O2 Saturation (95.0 - 100.0 %) 90.2 Respiration Rate (/MIN) 22 O2 Liters/Min (0 - 20 L/MIN) 3 Vent Mode NC FiO2 (20 - 101 %) 32 Chemistry Plasma Sodium (136 - 145 mmol/L) 133 Plasma Potassium (3.5 - 5.1 mmol/L) 5.5 Plasma Chloride (98 - 107 mmol/L) 102 CO2 (Enzymatic) (21 - 32 mmol/L) 17 BUN (7 - 18 mg/dL) 54 Creatinine (0.6 - 1.3 mg/dL) 2.9 Est GFR ( Amer) (mL/min) 21.11 Est GFR (Non-Af Amer) (mL/min) 17.42 Glucose (70 - 110 mg/dL) 107 Lactic Acid (0.4 - 2.0 mmol/L) 0.5 Plasma Calcium (8.5 - 10.1 mg/dL) 8.7 Plasma Magnesium (1.8 - 2.4 mg/dL) 2.3 Total Bilirubin (0.0 - 1.0 mg/dL) 0.3 AST (15 - 37 U/L) 16 ALT (12 - 78 U/L) 19 Alkaline Phosphatase (46 - 116 U/L) 63 Creatine Kinase (24 - 260 U/L) 65 Troponin (0.00 - 1.5 ng/mL) <0.05 B-Natriuretic Peptide (5 - 100 pg/ml) 59.3 Total Protein (6.4 - 8.2 g/dL) 7.1 Albumin (3.3 - 5.0 g/dL) 3.4 Amylase (25 - 115 U/L) 1822 Lipase (73 - 393 U/L) 47331 Procalcitonin (0 - 0.5 ng/mL) <0.5 TSH 3rd Generation (0.30 - 3.74 uIU/mL) 0.717 Coagulation INR (0.8 - 1.2) 1.1 D-Dimer, Quantitative (0.27 - 0.52 ug/mLFEU) 11.12 Hematology WBC (4.5 - 11.5 K/uL) 20.3 RBC (4.00 - 5.20 M/uL) 3.32 Hgb (12.0 - 16.0 gm/dL) 10.1 Hct (36.0 - 46.0 %) 30.7 MCV (80 - 100 fL) 92 MCH (26 - 34 pg) 31 RDW (11.6 - 14.8 %) 15.7 Neut % (Auto) (50 - 75 %) 91.9 Lymph % (Auto) (25 - 40 %) 2.2 Butts % (Auto) (3 - 14 %) 4.0 Eos % (Auto) (0 - 4 %) 0.3 Baso % (Auto) (0 - 2 %) 1.6 Plt Count, EDTA (150 - 400 K/uL) 306 PUBS MCHC (31 - 37 g/dL) 33 Toxicology Plasma/Serum Ethyl Alc (3 - 10 mg/dL) <3 12/23 12/23 184 1834 Chemistry Amylase Cancelled Lipase Cancelled TSH 3rd Generation Cancelled Toxicology Urine Opiates Screen (NEGATIVE) NEGATIVE Urine Methadone Screen (NEGATIVE) NEGATIVE Ur Barbiturates Screen (NEGATIVE) NEGATIVE U Amphetamin/Meth Scrn (NEGATIVE) NEGATIVE MDMA (Ecstasy) Screen (NEGATIVE) NEGATIVE U Benzodiazepines Scrn (NEGATIVE) NEGATIVE Urine Cocaine Screen (NEGATIVE) NEGATIVE U Cannabinoids Screen (NEGATIVE) POSITIVE Plasma/Serum Ethyl Alc Cancelled Urines Urine Color YELLOW Urine Appearance CLEAR Urine pH (5.0 - 8.0) 6.0 Ur Specific Alger (1.010 - 1.030) 1.015 Urine Protein (NEGATIVE) 1+ Urine Ketones (NEGATIVE) NEGATIVE Urine Blood (NEGATIVE) TRACE-LYSED Urine Nitrite (NEGATIVE) NEGATIVE Urine Bilirubin (NEGATIVE) NEGATIVE Urine Urobilinogen (0.2 - 1.0 EU/dL) 0.2 Ur Leukocyte Esterase (NEGATIVE) NEGATIVE Urine RBC (0 - 1 rbc/hpf) RARE Urine WBC (0 - 1 wbc/hpf) 3-5 Ur Epithelial Cells (0 - 5 EPI/hpf) 1-3 Urine Bacteria (NONE SEEN) MODERATE (2+ TO 3+) Urine Glucose (NEGATIVE) NEGATIVE Urine Comment CULTURE INDICATED Microbiology Date/Time Procedure - Status Source Growth 12/23 1844 Urine Culture - RECD URINE CATH Imaging Chest X-Ray: IMPRESSION: 1. New left basilar infiltrate 2. Improved right basilar atelectasis Dictated by: YAHIR VEGA MD D: MICHAEL;12/23/[address] Abdomen and Pelvis IMPRESSION: 1. Cholelithiasis 2. Pancreatitis, possibly secondary to cholelithiasis 3. Small ascites 4. Diverticulosis 5. Appendectomy and hysterectomy 6. Results discussed with Dr. Leroy Dictated by: YAHIR VEGA MD D: MICHAEL;12/23/162114 Abdominal Ultrasound IMPRESSION: 1. Cholelithiasis Dictated by: YAHIR VEGA MD D: MICHAEL;12/23/162237 Lower Extremity Venous Study IMPRESSION: 1. Negative venous ultrasound of the bilateral lower extremities. Dictated by: YAHIR VEGA MD D: MICHAEL;12/23/16 2325 Assessment and Plan Problem List 1. Acute pancreatitis Plan -The patient presents with findings of acute pancreatitis -This occurs in the setting of cholelithiasis, possibly representing gallstone pancreatitis -Amylase 1822, lipase 13,489. -Modified Darrell score = 5 -Bedford II score = 14 -Patient with significant end organ dysfunction with increased in-hospital mortality based on Darrell score/Bedford II score -IV fluid therapy -Close monitoring of hemodynamics -Severity of illness discussed with patient and family. -Admit to ICU -Surgical consultation-Dr. Quezada in a.m. 2. Metabolic acidosis Plan -Patient with findings of metabolic acidosis -Lactic acid level within normal limits -Procalcitonin normal -Patient with findings of UTI, pulmonary infiltrate without signs of overt infection. -We'll treat with Rocephin/Zithromax -Monitor closely -IV fluids of D5 0.5 normal saline, 1 amp sodium bicarbonate per liter. -Patient with hyperkalemia -Patient with acute renal insufficiency -Monitor, repeat ABG in a.m. 3. Obesity Status Chronic Onset Date Unknown Plan -Patient with findings of morbid obesity -Encourage weight reduction program post hospitalization 4. CKD (chronic kidney disease) stage 3, GFR 30-59 ml/min Status Acute Onset Date Unknown Plan -Patient with history of chronic kidney disease stage III -Acute on chronic renal insufficiency -BUN/creatinine-54/2.9 -Findings suggest a prerenal azotemia -IV fluid therapy -Panda catheter to monitor urinary output -Monitor 5. UTI (urinary tract infection) Status Acute Onset Date Unknown Plan -Patient with findings of UTI on urinalysis -Rocephin 1 g IV daily -Procalcitonin within normal limits, lactic acid within normal limits -Await urine C&S -Monitor 6. Pulmonary infiltrate Status Acute Onset Date Unknown Plan -Patient with findings of pulmonary infiltrate on chest x-ray -No complaints of new pulmonary symptoms-no fever, no cough -Treat with Rocephin/Zithromax -Repeat Procalcitonin a.m. -Repeat chest x-ray as appropriate 7. Venous stasis dermatitis Status Chronic Onset Date Unknown Plan -Patient with findings of venous stasis dermatitis with left posterior calf excoriation -Mild erythema/discharge from area -Monitor -No signs of systemic infection -Patient treated with Rocephin/Zithromax as noted above -Adjustments in antimicrobial therapy as necessary -Wound care follow-up 8. COPD (chronic obstructive pulmonary disease) Status Chronic Onset Date Unknown Plan -Patient with long-standing history of COPD -DuoNeb/albuterol -Supplemental oxygen as necessary -Monitor Current status: Critical, unstable Anticipated discharge date: Anticipated discharge 4-5 days Anticipated discharge placement: Home Patient care time: Time in chart review, patient interview, physical exam, CPOE, and care documentation: 70 mins Visit to patient today: 1 Complexity of care: High DVT prophylaxis: Lovenox 40 mg subcutaneous daily E&M Codes Admission: Inpt-High/65960
--- NOTE | 2016-12-23 22:17 | DIAGNOSTIC IMAGING REPORT ---
PROCEDURE: XR CHEST 1 VIEW INDICATION: SHORTNESS OF BREATH TECHNIQUE: Portable AP view 07:55 p.m. COMPARISON: Chest x-ray 10/23/2015. FINDINGS: Right PICC line has been removed. Improved mild right basilar atelectasis. New mild to moderate left basilar infiltrate Heart and mediastinum are normal. Thorax is normal. IMPRESSION: 1. New left basilar infiltrate 2. Improved right basilar atelectasis
--- NOTE | 2016-12-23 22:38 | DIAGNOSTIC IMAGING REPORT ---
PROCEDURE: US ABDOMEN ULTRASOUND-LIMITED INDICATION: RUQ PAIN TECHNIQUE: Bermeo scale and color Doppler sonographic images of the abdomen were obtained. COMPARISON: Abdominal ultrasound 08/14/2014. FINDINGS: Technically difficult examination secondary to patient's body habitus and rapid breathing. Gallstones present. There is no wall thickening. Normal CBD measures 5 mm. Negative López's sign. Liver measures 21.4 cm. Pancreas not well visualized. Visualized abdominal aorta and IVC are patent. Normal hepatopetal flow. Normal right kidney measures 10.4 cm. IMPRESSION: 1. Cholelithiasis
--- NOTE | 2016-12-23 23:25 | DIAGNOSTIC IMAGING REPORT ---
PROCEDURE: US VENOUS - BILATERAL EXT INDICATION: SWELLING TECHNIQUE: Color Doppler duplex imaging of the deep and superficial venous system without and with compression. COMPARISON: Bilateral lower extremity venous duplex ultrasound 09/01/2016. FINDINGS: RIGHT LOWER EXTREMITY: Deep and superficial venous system of the right lower extremity is within normal limits. There is no evidence of deep vein thrombosis or superficial thrombophlebitis. LEFT LOWER EXTREMITY: Deep and superficial venous system of the left lower extremity is within normal limits. There is no evidence of deep vein thrombosis or superficial thrombophlebitis. IMPRESSION: 1. Negative venous ultrasound of the bilateral lower extremities.
[2016-12-24] VITALS (16 sets, daily range): BP systolic 92–155; BP diastolic 53–97
--- NOTE | 2016-12-24 00:43 | ED MED RECONCILIATION SUMMARY ---
Patient: GREGG KEARNEY Medication Reconciliation Report [facility] VisitID: [id number] [address] [place] [address] 61y, F Registration Date/Time: 12/23/2016 Weight: 141.9 kg Height/Length: 66 in. BMI: 50.5 ALLERGIES: Thorazine The patient's Home Medications are listed below: THE FOLLOWING MEDICATIONS NEED TO BE RECONCILED: Calcitriol Oral (0.25 mcg) 1 capsule, daily Calcium Citrate Oral Centrum Silver Oral, daily Dicloxacillin Sodium Oral FLUoxetine HCl Oral (20 mg) 1 capsule, daily Furosemide Oral (40 mg) 1 tablet, daily Lisinopril Oral (40 mg) 1 tablet, daily LORazepam Oral (0.5 mg) 1 tablet, at bedtime Metoprolol Tartrate Oral (50 mg) 1 tablet, daily Omeprazole Oral 20 mg, daily Potassium Chloride ER Oral (10 meq) 1 capsule, BID RisperiDONE Oral (2 mg) 1 tablet, at bedtime Spiriva HandiHaler Inhalation 2.5 mcg Symbicort Inhalation The source(s) of the original Home Medication information: Not obtained. The following Medications were given to the patient in the Emergency Department: Zofran [IVP] IVP 4 mg, administered: 12/23/2016 7:33:00 PM IV NS IV Fluids bolus 500 mL over 30 minute(s), administered: 12/23/2016 8:22:00 PM Ceftriaxone [IVPB] IVPB bolus 0, then 1 gm, administered: 12/23/2016 8:23:00 PM Dilaudid [IVP] IVP 0.5 mg, administered: 12/23/2016 8:27:00 PM IV NS IV Fluids bolus 0, then 250 mL/hr, administered: 12/23/2016 8:59:00 PM Flagyl [IVPB] IVPB bolus 0, then 500 mg, administered: 12/23/2016 11:20:00 PM The following Medications were prescribed to the patient: None.
--- NOTE | 2016-12-24 00:43 | ED MED RECONCILIATION SUMMARY ---
Patient: GREGG KEARNEY Medication Reconciliation Report [facility] VisitID: [id number] [address] [place] [address] 61y, F Registration Date/Time: 12/23/2016 Weight: 141.9 kg Height/Length: 66 in. BMI: 50.5 ALLERGIES: Thorazine The patient's Home Medications are listed below: THE FOLLOWING MEDICATIONS NEED TO BE RECONCILED: Calcitriol Oral (0.25 mcg) 1 capsule, daily Calcium Citrate Oral Centrum Silver Oral, daily Dicloxacillin Sodium Oral FLUoxetine HCl Oral (20 mg) 1 capsule, daily Furosemide Oral (40 mg) 1 tablet, daily Lisinopril Oral (40 mg) 1 tablet, daily LORazepam Oral (0.5 mg) 1 tablet, at bedtime Metoprolol Tartrate Oral (50 mg) 1 tablet, daily Omeprazole Oral 20 mg, daily Potassium Chloride ER Oral (10 meq) 1 capsule, BID RisperiDONE Oral (2 mg) 1 tablet, at bedtime Spiriva HandiHaler Inhalation 2.5 mcg Symbicort Inhalation The source(s) of the original Home Medication information: Not obtained. The following Medications were given to the patient in the Emergency Department: Zofran [IVP] IVP 4 mg, administered: 12/23/2016 7:33:00 PM IV NS IV Fluids bolus 500 mL over 30 minute(s), administered: 12/23/2016 8:22:00 PM Ceftriaxone [IVPB] IVPB bolus 0, then 1 gm, administered: 12/23/2016 8:23:00 PM Dilaudid [IVP] IVP 0.5 mg, administered: 12/23/2016 8:27:00 PM IV NS IV Fluids bolus 0, then 250 mL/hr, administered: 12/23/2016 8:59:00 PM Flagyl [IVPB] IVPB bolus 0, then 500 mg, administered: 12/23/2016 11:20:00 PM The following Medications were prescribed to the patient: None.
--- NOTE | 2016-12-24 00:43 | ED MAR SUMMARY ---
..... Medication Administration Record [facility] [address] [place] [address] Patient: GREGG KEARNEY Visit ID: [id number] 61y, F Weight: 141.9 kg Height/Length: 66 in BMI: 50.5 ALLERGIES: Thorazine Given 19:33 12/23/2016 Jing Jones R.N. Medication Administered: ZOFRAN [IVP] (ONDANSETRON HCL), Dose: 4 mg IVP over 2 minute(s), Site: #1 left AC. Medication Ordered: Zofran IV 4 mg (NOW). Start 20:22 12/23/2016 Jing Jones R.N., Stop 20:59 12/23/2016 Jing Jones R.N. Medication Administered: IV NS (SALINE), Dose: IV Fluids, Bolus: 500 mL over 30 minute(s), Dispensed: 1000 mL bag, Site: #1 left AC. Medication Ordered: IV NS : initial bolus 500 mL (1000 mL/hr), then 250 mL/hr for X3 (NOW). Start 20:23 12/23/2016 Jing Jones R.N., Stop 20:43 12/23/2016 Jing Jones R.N. Medication Administered: CEFTRIAXONE [IVPB], Dose: 1 gm IVPB over 20 minute(s), Dispensed: 50 mL bag, Site: #1 left AC. Medication Ordered: Ceftriaxone IV 1 gm/50mL (NOW). Given 20:27 12/23/2016 Jing Jones R.N. Medication Administered: DILAUDID [IVP] (HYDROMORPHONE HCL PF), Dose: 0.5 mg IVP over 2 minute(s), Site: #1 left AC. Medication Ordered: Dilaudid IV 0.5 mg (HIGH ALERT MEDICATION, NOW). Start 20:59 12/23/2016 Jing Jones R.N., Stop 23:14 12/23/2016 Jing Jones R.N. Medication Administered: IV NS (SALINE), Dose: IV Fluids over 3 hour(s), Rate: 250 mL/hr, Dispensed: 1000 mL bag, Site: #1 left AC. Medication Ordered: IV NS : initial bolus 500 mL (1000 mL/hr), then 250 mL/hr for X3 (NOW). Start 23:20 12/23/2016 Jing Jones RAye., Continued Upon Admission 23:30 12/23/2016 Jing Jones R.N. Medication Administered: FLAGYL [IVPB] (METRONIDAZOLE IN NACL), Dose: 500 mg IVPB over 1 hour(s), Dispensed: 100 mL bag, Site: #1 left AC. Medication Ordered: Flagyl IV 500 mg/100mL (NOW).
--- NOTE | 2016-12-24 00:43 | ED MAR SUMMARY ---
..... Medication Administration Record [facility] [address] [place] [address] Patient: GREGG KEARNEY Visit ID: [id number] 61y, F Weight: 141.9 kg Height/Length: 66 in BMI: 50.5 ALLERGIES: Thorazine Given 19:33 12/23/2016 Jing Jones R.N. Medication Administered: ZOFRAN [IVP] (ONDANSETRON HCL), Dose: 4 mg IVP over 2 minute(s), Site: #1 left AC. Medication Ordered: Zofran IV 4 mg (NOW). Start 20:22 12/23/2016 Jing Jones R.N., Stop 20:59 12/23/2016 Jing Jones R.N. Medication Administered: IV NS (SALINE), Dose: IV Fluids, Bolus: 500 mL over 30 minute(s), Dispensed: 1000 mL bag, Site: #1 left AC. Medication Ordered: IV NS : initial bolus 500 mL (1000 mL/hr), then 250 mL/hr for X3 (NOW). Start 20:23 12/23/2016 Jing Jones R.N., Stop 20:43 12/23/2016 Jing Jones R.N. Medication Administered: CEFTRIAXONE [IVPB], Dose: 1 gm IVPB over 20 minute(s), Dispensed: 50 mL bag, Site: #1 left AC. Medication Ordered: Ceftriaxone IV 1 gm/50mL (NOW). Given 20:27 12/23/2016 Jing Jones R.N. Medication Administered: DILAUDID [IVP] (HYDROMORPHONE HCL PF), Dose: 0.5 mg IVP over 2 minute(s), Site: #1 left AC. Medication Ordered: Dilaudid IV 0.5 mg (HIGH ALERT MEDICATION, NOW). Start 20:59 12/23/2016 Jing Jones R.N., Stop 23:14 12/23/2016 Jing Jones R.N. Medication Administered: IV NS (SALINE), Dose: IV Fluids over 3 hour(s), Rate: 250 mL/hr, Dispensed: 1000 mL bag, Site: #1 left AC. Medication Ordered: IV NS : initial bolus 500 mL (1000 mL/hr), then 250 mL/hr for X3 (NOW). Start 23:20 12/23/2016 Jing Jones RAye., Continued Upon Admission 23:30 12/23/2016 Jing Jones R.N. Medication Administered: FLAGYL [IVPB] (METRONIDAZOLE IN NACL), Dose: 500 mg IVPB over 1 hour(s), Dispensed: 100 mL bag, Site: #1 left AC. Medication Ordered: Flagyl IV 500 mg/100mL (NOW).
--- NOTE | 2016-12-24 00:43 | ED DISCHARGE INSTRUCTIONS ---
Patient: GREGG KEARNEY General Instructions [facility] VisitID: [id number] [place] [address] 61y, F Registration Date/Time: 12/23/2016 Acute generalized weakness. Moderate dehydration. Acute idiopathic pancreatitis. Gallbladder disease with multiple gallstones. No gallstone in the cystic or bile duct, obstruction or cholangitis. Mild acute renal failure. Chronic substance abuse- tobacco (cigarettes), marijuana with anxiety. Moderate leukocytosis. No lymphocytosis. Acute urinary tract infection with cystitis. Yeast dermatitis lower abdomen Chronic bilateral lower extremity venous insufficiency with worsening. ADDITIONAL INFORMATION Pancreatitis The pancreas is an organ in the left upper abdomen that secretes digestive juices into the stomach. Pancreatitis is an inflammation of the pancreas. This may occur for various causes including heavy alcohol use, gall stone blockage of the outflow duct from the pancreas, certain medicines and viral illness. Sometimes the cause of pancreatitis cannot be found. Moderate to severe illness requires being treated in the hospital. Milder attacks of pancreatitis can be treated at home. Home Care: 1) Absolutely NO ALCOHOL. 2) Rest in bed or sit up in a chair until you feel better. 3) Eat small more frequent meals rather than a few large meals each day. 4) Follow a high protein, high carbohydrate, low fat diet. 5) If you were given medicine for pain or vomiting, take it as prescribed. Follow Up with your doctor or as directed by our staff for further evaluation. Get Prompt Medical Attention if any of the following occur: -- Continued or worsening pain in the abdomen -- Repeated vomiting: unable to keep down liquids -- Dizziness, weakness or fainting -- Vomiting blood or blood in the stool (black or red color) -- Fever over 100.4 F (38.0 C) -- Severe muscle cramps or seizure -- Trouble breathing or fast breathing (over 25 breaths/minute) -- Jaundice (yellow color of the skin or eyes) Bladder Infection,Female (Adult) A bladder infection ("cystitis" or "UTI") usually causes a constant urge to urinate and a burning when passing urine. Urine may be cloudy, smelly or dark. There may be pain in the lower abdomen. A bladder infection occurs when bacteria from the vaginal area enter the bladder opening (urethra). This can occur from sexual intercourse, wearing tight clothing, dehydration and other factors. Home Care: Drink lots of fluids (at least 6-8 glasses a day, unless you must restrict fluids for other medical reasons). This will force the medicine into your urinary system and flush the bacteria out of your body. Avoid sexual intercourse until your symptoms are gone. Avoid caffeine, alcohol and spicy foods. These can irritate the bladder. A bladder infection is treated with antibiotics. You may also be given Pyridium (generic = phenazopyridine) to reduce the burning sensation. This medicine will cause your urine to become a bright orange color. The orange urine may stain clothing. You may wear a pad or panty-liner to protect clothing. Preventing Future Infections: Always wipe from front to back after a bowel movement. Keep the genital area clean and dry. Drink plenty of fluids each day to avoid dehydration. Both sexual partners should wash before intercourse. Urinate right after intercourse to flush out the bladder. Wear cotton underwear and cotton-lined panty hose; avoid tight-fitting pants. If you are on control pills and are having frequent bladder infections, discuss with your doctor. Follow Up: Return to this facility or see your doctor if ALL symptoms are not gone after three days of treatment. Get Prompt Medical Attention if any of the following occur: Fever of 100.4F (38C) or higher, or as directed by your healthcare provider No improvement by the third day of treatment Increasing back or abdominal pain Repeated vomiting; unable to keep medicine down Weakness, dizziness or fainting Vaginal discharge Pain, redness or swelling in the labia (outer vaginal area) You have been given the following additional information: Pancreatitis Bladder Infection, Female (Adult) (Electronically signed by Sam Leroy DO 12/24/2016 0:14)
--- NOTE | 2016-12-24 09:22 | Progress Note ---
Subjective General The patient states the history of present was began on the day of admission when she developed epigastric abdominal discomfort. This was associated with nausea but no vomiting. She knew of no aggravating or relieving factors. Secondary to persistent abdominal pain the patient presented to [facility] emergency department for further evaluation and treatment. [facility] ER evaluation showed the patient to have vital signs of blood pressure 138/66, pulse 76, respirations 22, temperature 97.9 Fahrenheit, O2 sat 97%. Physical exam showed epigastric discomfort with palpation. Laboratory evaluation showed elevation amylase and lipase with CT scan findings consistent with pancreatitis. No signs of significant pancreatic necrosis. CT also showed gallstones but no signs of cholecystitis. Abdominal ultrasound was consistent with cholelithiasis without cholecystitis. UA was suggestive of UTI. Pulmonary infiltrate noted with no new pulmonary symptomatology. Secondary to the above, the patient was in with a diagnosis of acute pancreatitis probable gallstone pancreatitis, metabolic acidosis, UTI, and pulmonary infiltrate for further evaluation and treatment. Still has pain in abdomen, also dyspnea, no nausea or vomiting, no BM yet, no cp , sitting on chair, mildly distressed, but alert ROS: GI: positive for abdominal pain, negative for nausea or vomiting Respiratory: positive for dyspnea, negative for chest pain Neurology: Alert, orientedX3 Physical Exam Vital Signs / I&Os Vital Signs Date Time Temp Pulse Resp B/P Pulse O2 O2 Flow FiO2 Ox Delivery Rate 12/24 0851 87 18 122/70 90 Nasal 2.0 Cannula 12/24 0839 3.0 12/24 0712 86 19 132/97 100 Nasal 1.0 Cannula 12/24 0632 98.2 86 13 139/68 89 Nasal 1.0 Cannula 12/24 0547 82 12/24 0523 2.0 12/24 0519 87 20 143/62 92 Nasal 3.0 Cannula 12/24 0411 83 19 142/85 96 Nasal 3.0 Cannula 12/24 0313 85 20 122/64 93 Nasal 3.0 Cannula 12/24 0222 98.4 90 23 142/92 99 Nasal 3.0 Cannula 12/24 0139 Nasal 2.0 Cannula 12/24 0111 82 20 92/63 93 Nasal 2.5 Cannula 12/24 0050 2.0 12/24 0014 98.4 97 17 101/53 91 Nasal 3.0 Cannula 12/23 2108 3.0 I&O 12/24 0000 12/23 1600 12/23 0800 Intake Total Output Total Balance General Appearance Alert, Oriented X3, Mild distress Lungs decreased air exchange all over lungs Neck Supple, No JVD Cardiovascular Regular rate and rhythm, Normal S1 and S2, No murmurs, gallops, rubs Abdomen Soft, hypoactive BS, tender, distended, Extremities Normal exam (2 plus edema bilaterally) Skin lesion is left calf stable, chronic skin changes in lower extr.s Psych/Mental Status Mental status normal LAB Results Laboratory Tests 12/24 12/24 12/24 12/24 12/23 0600 0445 0445 0445 2053 Blood Gas Sample Site RR Total CO2 (24.0 - 30.0 mmol/L) 15.5 ABG pH (7.35 - 7.45) 7.15 ABG pCO2 at Pt Temp (35 - 45 mmHg) 40.7 ABG pO2 at Pt Temp (60.0 - 80.0 mmHg) 75.5 ABG HCO3 (20.0 - 26.0 mmol/L) 14.2 ABG O2 Sat Calc/Justin (95.1 - 100.0 %) 93.9 ABG Base Excess (-6.0 - -6.0 mmol/L) -13.4 ABG Reduced Hgb (%) 6.1 ABG Carboxyhemoglobin (0.5 - 1.5 %) 1.2 ABG Methemoglobin (0.4 - 1.5 %) -0.5 Rick Test YES Other Total Hgb (12.0 - 16.0 g/dL) 9.6 A-a O2 Gradient (7.0 - 14.0 mmHg) 78.1 Hgb O2 Saturation (95.0 - 100.0 %) 93.2 Respiration Rate (/MIN) 20 O2 Liters/Min (0 - 20 L/MIN) 2 Vent Mode NC FiO2 (20 - 101 %) 28 Chemistry Plasma Sodium (136 - 145 mmol/L) 136 Plasma Potassium (3.5 - 5.1 mmol/L) 5.3 Plasma Chloride (98 - 107 mmol/L) 104 CO2 (Enzymatic) (21 - 32 mmol/L) 16 BUN (7 - 18 mg/dL) 54 Creatinine (0.6 - 1.3 mg/dL) 2.7 Est GFR ( Amer) (mL/min) 22.93 Est GFR (Non-Af Amer) (mL/min) 18.92 Glucose (70 - 110 mg/dL) 82 Lactic Acid (0.4 - 2.0 mmol/L) 0.5 0.5 Plasma Calcium (8.5 - 10.1 mg/dL) 8.3 Total Bilirubin (0.0 - 1.0 mg/dL) 0.3 AST (15 - 37 U/L) 16 ALT (12 - 78 U/L) 15 Alkaline Phosphatase (46 - 116 U/L) 62 Total Protein (6.4 - 8.2 g/dL) 6.8 Albumin (3.3 - 5.0 g/dL) 3.1 Amylase (25 - 115 U/L) 2418 Lipase (73 - 393 U/L) 30341 Procalcitonin (0 - 0.5 ng/mL) <0.5 Hematology WBC (4.5 - 11.5 K/uL) 20.1 RBC (4.00 - 5.20 M/uL) 3.28 Hgb (12.0 - 16.0 gm/dL) 10.1 Hct (36.0 - 46.0 %) 30.7 MCV (80 - 100 fL) 94 MCH (26 - 34 pg) 31 RDW (11.6 - 14.8 %) 16.4 Neut % (Auto) (50 - 75 %) 85 Lymph % (Auto) (25 - 40 %) 12 [place] % (Auto) (3 - 14 %) 2 Eos % (Auto) (0 - 4 %) 0 Baso % (Auto) (0 - 2 %) 0 Band Neutrophils % (0 - 8 %) 1 Metamyelocytes % (0 - 1 %) 0 Myelocytes (0 - 1 %) 0 Other Cell Type 0 Plt Count, EDTA (150 - 400 K/uL) 285 Hypochromic-Microcytic 1+ Anisocytosis (manual) 1+ PUBS MCHC (31 - 37 g/dL) 33 12/23 Blood Gas Sample Site RR Total CO2 (24.0 - 30.0 mmol/L) 16.0 ABG pH (7.35 - 7.45) 7.14 ABG pCO2 at Pt Temp (35 - 45 mmHg) 43.4 ABG pO2 at Pt Temp (60.0 - 80.0 mmHg) 72.6 ABG HCO3 (20.0 - 26.0 mmol/L) 14.6 ABG O2 Sat Calc/Justin (95.1 - 100.0 %) 91.8 ABG Base Excess (-6.0 - -6.0 mmol/L) -13.3 ABG Reduced Hgb (%) 8.1 ABG Carboxyhemoglobin (0.5 - 1.5 %) 1.6 ABG Methemoglobin (0.4 - 1.5 %) 0.1 Rick Test YES Other Total Hgb (12.0 - 16.0 g/dL) 10.0 A-a O2 Gradient (7.0 - 14.0 mmHg) 106.2 Hgb O2 Saturation (95.0 - 100.0 %) 90.2 Respiration Rate (/MIN) 22 O2 Liters/Min (0 - 20 L/MIN) 3 Vent Mode NC FiO2 (20 - 101 %) 32 Chemistry Plasma Sodium (136 - 145 mmol/L) 133 Plasma Potassium (3.5 - 5.1 mmol/L) 5.5 Plasma Chloride (98 - 107 mmol/L) 102 CO2 (Enzymatic) (21 - 32 mmol/L) 17 BUN (7 - 18 mg/dL) 54 Creatinine (0.6 - 1.3 mg/dL) 2.9 Est GFR ( Amer) (mL/min) 21.11 Est GFR (Non-Af Amer) (mL/min) 17.42 Glucose (70 - 110 mg/dL) 107 Plasma Calcium (8.5 - 10.1 mg/dL) 8.7 Plasma Magnesium (1.8 - 2.4 mg/dL) 2.3 Total Bilirubin (0.0 - 1.0 mg/dL) 0.3 AST (15 - 37 U/L) 16 ALT (12 - 78 U/L) 19 Alkaline Phosphatase (46 - 116 U/L) 63 Creatine Kinase (24 - 260 U/L) 65 Troponin (0.00 - 1.5 ng/mL) <0.05 B-Natriuretic Peptide (5 - 100 pg/ml) 59.3 Total Protein (6.4 - 8.2 g/dL) 7.1 Albumin (3.3 - 5.0 g/dL) 3.4 Amylase (25 - 115 U/L) 1822 Lipase (73 - 393 U/L) 41020 Procalcitonin (0 - 0.5 ng/mL) <0.5 TSH 3rd Generation (0.30 - 3.74 uIU/mL) 0.717 Coagulation INR (0.8 - 1.2) 1.1 D-Dimer, Quantitative (0.27 - 0.52 ug/mLFEU) 11.12 Hematology WBC (4.5 - 11.5 K/uL) 20.3 RBC (4.00 - 5.20 M/uL) 3.32 Hgb (12.0 - 16.0 gm/dL) 10.1 Hct (36.0 - 46.0 %) 30.7 MCV (80 - 100 fL) 92 MCH (26 - 34 pg) 31 RDW (11.6 - 14.8 %) 15.7 Neut % (Auto) (50 - 75 %) 91.9 Lymph % (Auto) (25 - 40 %) 2.2 [place] % (Auto) (3 - 14 %) 4.0 Eos % (Auto) (0 - 4 %) 0.3 Baso % (Auto) (0 - 2 %) 1.6 Plt Count, EDTA (150 - 400 K/uL) 306 PUBS MCHC (31 - 37 g/dL) 33 Toxicology Plasma/Serum Ethyl Alc (3 - 10 mg/dL) <3 08 12/23 1845 1834 Chemistry Amylase Cancelled Lipase Cancelled TSH 3rd Generation Cancelled Toxicology Urine Opiates Screen (NEGATIVE) NEGATIVE Urine Methadone Screen (NEGATIVE) NEGATIVE Ur Barbiturates Screen (NEGATIVE) NEGATIVE U Amphetamin/Meth Scrn (NEGATIVE) NEGATIVE MDMA (Ecstasy) Screen (NEGATIVE) NEGATIVE U Benzodiazepines Scrn (NEGATIVE) NEGATIVE Urine Cocaine Screen (NEGATIVE) NEGATIVE U Cannabinoids Screen (NEGATIVE) POSITIVE Plasma/Serum Ethyl Alc Cancelled Urines Urine Color YELLOW Urine Appearance CLEAR Urine pH (5.0 - 8.0) 6.0 Ur Specific [place] (1.010 - 1.030) 1.015 Urine Protein (NEGATIVE) 1+ Urine Ketones (NEGATIVE) NEGATIVE Urine Blood (NEGATIVE) TRACE-LYSED Urine Nitrite (NEGATIVE) NEGATIVE Urine Bilirubin (NEGATIVE) NEGATIVE Urine Urobilinogen (0.2 - 1.0 EU/dL) 0.2 Ur Leukocyte Esterase (NEGATIVE) NEGATIVE Urine RBC (0 - 1 rbc/hpf) RARE Urine WBC (0 - 1 wbc/hpf) 3-5 Ur Epithelial Cells (0 - 5 EPI/hpf) 1-3 Urine Bacteria (NONE SEEN) MODERATE (2+ TO 3+) Urine Glucose (NEGATIVE) NEGATIVE Urine Comment CULTURE INDICATED Microbiology Date/Time Procedure - Status Source Growth 12/24 0003 MRSA Screen - RECD NASAL 12/23 1844 Urine Culture - RECD URINE CATH Assessment and Plan Problem List 1. Acute pancreatitis Plan continue IV hydration, NPO, monitor lipase amylase 2. Metabolic acidosis Plan I think this is related to ARF, will repeat ABG this evening, monitor potassium closely, continue IV bicarb for now 3. COPD (chronic obstructive pulmonary disease) Status Chronic Onset Date Unknown Plan continue nbx 4. UTI (urinary tract infection) Status Acute Onset Date Unknown Plan on Rocephin 5. Pulmonary infiltrate Status Acute Onset Date Unknown Plan Zythromax added 6. Elevated d-dimer Plan Doppler of lower extremties is negative for DVT, CTA can not be done for RF, since pt dose not show any clinical signs of PE will not do V/Q scan for now
--- NOTE | 2016-12-24 15:51 | Discharge Summary ---
Discharge Summary Report Admit Date 12/23/16 Discharge Date 12/24/16 Admission Diagnosis 1- acute pancreatitis 2- Metabolic acidosis 3- UTI 4-CRF 5-pneumonia Discharge Diagnosis 1-Acute pancreatitis 2-Metabolic acidosis 3-UTI 4-CRF 5-Pneumonia Brief History The patient is a 61-year-old morbidly obese white female with a significant past medical history of venous stasis dermatitis lower extremities, COPD, hypertension, osteoarthritis, depression, bipolar disorder, hepatitis C, who presented to [facility] emergency department on the day of admission secondary to complaints of abdominal pain and weakness.. [facility] ER evaluation was consistent with acute pancreatitis, cholelithiasis, metabolic acidosis. Secondary to the above, the patient was admitted by Te Alvarenga M.D. for further evaluation and treatment. The patient states the history of present was began on the day of admission when she developed epigastric abdominal discomfort. This was associated with nausea but no vomiting. She knew of no aggravating or relieving factors. Secondary to persistent abdominal pain the patient presented to [facility] emergency department for further evaluation and treatment. [facility] ER evaluation showed the patient to have vital signs of blood pressure 138/66, pulse 76, respirations 22, temperature 97.9 Fahrenheit, O2 sat 97%. Physical exam showed epigastric discomfort with palpation. Laboratory evaluation showed elevation amylase and lipase with CT scan findings consistent with pancreatitis. No signs of significant pancreatic necrosis. CT also showed gallstones but no signs of cholecystitis. Abdominal ultrasound was consistent with cholelithiasis without cholecystitis. UA was suggestive of UTI. Pulmonary infiltrate noted with no new pulmonary symptomatology. Secondary to the above, the patient was in with a diagnosis of acute pancreatitis probable gallstone pancreatitis, metabolic acidosis, UTI, and pulmonary infiltrate for further evaluation and treatment. Hospital Course The patient was admitted to ICU and was started on IV hydration with Bicarb in IV fluid. Also IV Rocephin and Zythromax started. But patient did not improve actually her condion worsen, her acidosis progressed with last PH: 7.119 and she developped [place] typ breathing. So patient was transfered to [facility] ICU under Dr. Recinos Discharge Instructions/Meds Transfered to [facility] ICU
--- NOTE | 2016-12-24 15:51 | Discharge Summary ---
Discharge Summary Report Admit Date 12/23/16 Discharge Date 12/24/16 Admission Diagnosis 1- acute pancreatitis 2- Metabolic acidosis 3- UTI 4-CRF 5-pneumonia Discharge Diagnosis 1-Acute pancreatitis 2-Metabolic acidosis 3-UTI 4-CRF 5-Pneumonia Brief History The patient is a 61-year-old morbidly obese white female with a significant past medical history of venous stasis dermatitis lower extremities, COPD, hypertension, osteoarthritis, depression, bipolar disorder, hepatitis C, who presented to [facility] emergency department on the day of admission secondary to complaints of abdominal pain and weakness.. [facility] ER evaluation was consistent with acute pancreatitis, cholelithiasis, metabolic acidosis. Secondary to the above, the patient was admitted by Te Alvarenga M.D. for further evaluation and treatment. The patient states the history of present was began on the day of admission when she developed epigastric abdominal discomfort. This was associated with nausea but no vomiting. She knew of no aggravating or relieving factors. Secondary to persistent abdominal pain the patient presented to [facility] emergency department for further evaluation and treatment. [facility] ER evaluation showed the patient to have vital signs of blood pressure 138/66, pulse 76, respirations 22, temperature 97.9 Fahrenheit, O2 sat 97%. Physical exam showed epigastric discomfort with palpation. Laboratory evaluation showed elevation amylase and lipase with CT scan findings consistent with pancreatitis. No signs of significant pancreatic necrosis. CT also showed gallstones but no signs of cholecystitis. Abdominal ultrasound was consistent with cholelithiasis without cholecystitis. UA was suggestive of UTI. Pulmonary infiltrate noted with no new pulmonary symptomatology. Secondary to the above, the patient was in with a diagnosis of acute pancreatitis probable gallstone pancreatitis, metabolic acidosis, UTI, and pulmonary infiltrate for further evaluation and treatment. Hospital Course The patient was admitted to ICU and was started on IV hydration with Bicarb in IV fluid. Also IV Rocephin and Zythromax started. But patient did not improve actually her condion worsen, her acidosis progressed with last PH: 7.119 and she developped [place] typ breathing. So patient was transfered to [facility] ICU under Dr. Recinos Discharge Instructions/Meds Transfered to [facility] ICU
== END 2016-12-24 17:10 | disposition short-term general hospital (02) | DRG 438 ==
LOC: ED SRH 18:14 → TRANS SRH 21:22 → CC SRH 21:22
PROVIDERS: ADMIT Internal Medicine
DX: K85.10 Biliary acute pancreatitis without necrosis or infection (principal); K80.20 Calculus of gallbladder without cholecystitis without obstruction; J44.0 Chronic obstructive pulmonary disease with (acute) lower respiratory infection; J18.9 Pneumonia, unspecified organism; N39.0 Urinary tract infection, site not specified; E87.2 Acidosis; R39.2 Extrarenal uremia; I12.9 Hypertensive chronic kidney disease with stage 1 through stage 4 chronic kidney disease, or unspecified chronic kidney disease; N18.3 Chronic kidney disease, stage 3 (moderate); Z68.43 Body mass index [BMI] 50.0-59.9, adult; R79.89 Other specified abnormal findings of blood chemistry; E66.01 Morbid (severe) obesity due to excess calories; Z86.19 Personal history of other infectious and parasitic diseases